=== PATIENT | male | born 1935 | race Caucasian/White ===

== ENCOUNTER 2018-06-24 10:45 | Observation (INO) | payer BC, MEDICARE ==
[2018-06-24] MEDS ORDERED: SODIUM CHLORIDE 0.9% 1,000 ML IV STA (11:17)
[2018-06-24] MEDS ORDERED: PANTOPRAZOLE 40 MG/10 ML VIAL IVP STA (11:17)
--- NOTE | 2018-06-24 11:50 | ED ---
GI Bleed HPI - General Chief complaint: GI Bleed Stated complaint: GI Bleed Time Seen by Provider: 06/24/18 11:10 Source: patient, family, RN notes reviewed Mode of arrival: ambulatory Limitations: no limitations - History of Present Illness Initial comments: This is a 82-year-old male with a history of anemia who does get B12 shots who presents with complaints of one week ago black colored stools that now turning and diarrhea he's had some lightheadedness some weakness especially gets up from a laying position no fevers chills nausea vomiting sweats or other symptoms. No known history of diverticulitis or GI bleed. He is on Elaquis he did have a cardiac ablation recently at [facility]. He did not take his Eliquis today MD complaint: melena - Related Data Home Medications Medication Instructions Recorded Confirmed Allopurinol [Zyloprim] 100 mg PO BID 01/26/16 06/24/18 Docusate [Colace] 100 mg PO DAILY 01/26/16 06/24/18 Ibuprofen [Motrin] 800 mg PO TID PRN 01/26/16 06/24/18 Metoprolol Succinate (ER) [Toprol 25 mg PO DAILY 01/26/16 06/24/18 XL] Pravastatin Sodium [Pravachol] 40 mg PO HS 01/26/16 06/24/18 glipiZIDE [Glucotrol] 5 mg PO DAILY 01/26/16 06/24/18 Albuterol Inhaler [Ventolin Hfa 1 - 2 puff INHALATION RT-Q6H PRN 06/24/18 Inhaler] Apixaban [Eliquis] 2.5 mg PO BID 06/24/18 06/24/18 Aspirin EC [Ecotrin Low Dose] 81 mg PO DAILY 06/24/18 06/24/18 Cholecalciferol (Vitamin D3) 2,000 unit PO DAILY 06/24/18 06/24/18 [Vitamin D3] Cyanocobalamin [Vitamin B-12 1,000 mcg SQ QMONTH 06/24/18 06/24/18 Injection] Dulaglutide [Trulicity] 0.75 mg SQ WE 06/24/18 06/24/18 Fluticasone Nasal [place] [Flonase 2 spr EA NOSTRIL DAILY 06/24/18 06/24/18 Nasal [place]] Furosemide [Lasix] 20 mg PO BID 06/24/18 06/24/18 Gabapentin [Neurontin] 300 mg PO BID 06/24/18 06/24/18 Ipratropium-Albuterol Nebulize 3 ml INHALATION RT-QID 06/24/18 06/24/18 [Duoneb 0.5 mg-3 mg/3 ml Soln] Omeprazole 20 mg PO DAILY 06/24/18 06/24/18 Potassium Chloride ER [K-Dur 10] 10 meq PO BID 06/24/18 06/24/18 glipiZIDE [Glucotrol] 10 mg PO HS 06/24/18 06/24/18 Allergies Allergy/AdvReac Type Severity Reaction Status Date / Time adhesive tape AdvReac Unknown Verified 06/24/18 11:35 codeine AdvReac Nausea Verified 06/24/18 11:35 morphine AdvReac Nausea and Verified 06/24/18 11:35 decreased heart rate Review of Systems ROS Statement: Those systems with pertinent positive or pertinent negative responses have been documented in the HPI. ROS Other: All systems not noted in ROS Statement are negative. Past Medical History Past Medical History: Atrial Fibrillation, Coronary Artery Disease (CAD), Heart Failure, Diabetes Mellitus, Hyperlipidemia History of Any Multi-Drug Resistant Organisms: None Reported Past Surgical History: Ablation, Cardiac Ablation, Joint Replacement, Orthopedic Surgery Past Psychological History: No Psychological Hx Reported Smoking Status: Never smoker Past Alcohol Use History: Daily, Occasional Past Drug Use History: None Reported General Exam - General Exam Comments Initial Comments: This is a well-developed well-nourished awake alert oriented 3 male Limitations: no limitations General appearance: alert, in no apparent distress Head exam: Present: atraumatic, normocephalic, normal inspection Eye exam: Present: normal appearance, PERRL, EOMI. Absent: scleral icterus, conjunctival injection, periorbital swelling ENT exam: Present: normal exam, mucous membranes moist Neck exam: Present: normal inspection. Absent: tenderness, meningismus, lymphadenopathy Respiratory exam: Present: normal lung sounds bilaterally. Absent: respiratory distress, wheezes, rales, rhonchi, stridor Cardiovascular Exam: Present: regular rate, normal rhythm, normal heart sounds. Absent: systolic murmur, diastolic murmur, rubs, gallop, clicks GI/Abdominal exam: Present: soft, normal bowel sounds. Absent: distended, tenderness, guarding, rebound, rigid Rectal exam: Present: normal inspection, heme (+) stool, black stool Extremities exam: Present: full ROM, normal capillary refill, other (Stasis dermatitis with scarring some edema to the right lower extremity). Absent: tenderness, pedal edema, joint swelling, calf tenderness Back exam: Present: normal inspection Neurological exam: Present: alert, oriented X3, CN II-XII intact Psychiatric exam: Present: normal affect, normal mood Skin exam: Present: warm, dry, intact, normal color. Absent: rash Course Vital Signs 06/24/18 06/24/18 10:49 13:45 Temperature 97.6 F Pulse Rate 87 68 Respiratory 18 18 Rate Blood Pressure 117/64 131/65 O2 Sat by Pulse 98 99 Oximetry Medical Decision Making - Medical Decision Making I did a long session with patient family members patient will be admitted for evaluation by GI. - Lab Data Result diagrams: 06/24/18 11:35 06/24/18 11:35 Lab Results 06/24/18 06/24/18 06/24/18 Range/Units 11:35 11:35 11:35 WBC 5.7 (3.8-10.6) k/uL RBC 3.03 L (4.30-5.90) m/uL Hgb 10.5 L (13.0-17.5) gm/dL Hct 30.7 L (39.0-53.0) % MCV 101.3 H (80.0-100.0) fL MCH 34.5 (25.0-35.0) pg MCHC 34.1 (31.0-37.0) g/dL RDW 15.2 (11.5-15.5) % Plt Count 143 L (150-450) k/uL Neutrophils % 81 % Lymphocytes % 9 % Monocytes % 5 % Eosinophils % 3 % Basophils % 0 % Neutrophils # 4.6 (1.3-7.7) k/uL Lymphocytes # 0.5 L (1.0-4.8) k/uL Monocytes # 0.3 (0-1.0) k/uL Eosinophils # 0.2 (0-0.7) k/uL Basophils # 0.0 (0-0.2) k/uL Macrocytosis Slight PT (9.0-12.0) sec INR (<1.2) APTT (22.0-30.0) sec Sodium 141 (137-145) mmol/L Potassium 4.0 (3.5-5.1) mmol/L Chloride 110 H (98-107) mmol/L Carbon Dioxide 22 (22-30) mmol/L Anion Gap 9 mmol/L BUN 33 H (9-20) mg/dL Creatinine 1.75 H (0.66-1.25) mg/dL Est GFR (CKD-EPI)AfAm 42 (>60 ml/min/1.73 sqM) Est GFR (CKD-EPI)NonAf 36 (>60 ml/min/1.73 sqM) Glucose 181 H (74-99) mg/dL Calcium 8.3 L (8.4-10.2) mg/dL Magnesium 2.1 (1.6-2.3) mg/dL Total Bilirubin 0.5 (0.2-1.3) mg/dL AST 20 (17-59) U/L ALT 23 (21-72) U/L Alkaline Phosphatase 114 (38-126) U/L Total Creatine Kinase 116 (55-170) U/L CK-MB (CK-2) 2.6 H (0.0-2.4) ng/mL CK-MB (CK-2) Rel Index 2.2 Troponin I 0.012 (0.000-0.034) ng/mL Total Protein 6.6 (6.3-8.2) g/dL Albumin 3.8 (3.5-5.0) g/dL Stool Occult Blood (Negative) Blood Type Blood Type Recheck Antibody Screen Spec Expiration Date 06/24/18 06/24/18 06/24/18 Range/Units 11:35 11:35 11:35 WBC (3.8-10.6) k/uL RBC (4.30-5.90) m/uL Hgb (13.0-17.5) gm/dL Hct (39.0-53.0) % MCV (80.0-100.0) fL MCH (25.0-35.0) pg MCHC (31.0-37.0) g/dL RDW (11.5-15.5) % Plt Count (150-450) k/uL Neutrophils % % Lymphocytes % % Monocytes % % Eosinophils % % Basophils % % Neutrophils # (1.3-7.7) k/uL Lymphocytes # (1.0-4.8) k/uL Monocytes # (0-1.0) k/uL Eosinophils # (0-0.7) k/uL Basophils # (0-0.2) k/uL Macrocytosis PT 10.2 (9.0-12.0) sec INR 1.0 (<1.2) APTT 26.0 (22.0-30.0) sec Sodium (137-145) mmol/L Potassium (3.5-5.1) mmol/L Chloride (98-107) mmol/L Carbon Dioxide (22-30) mmol/L Anion Gap mmol/L BUN (9-20) mg/dL Creatinine (0.66-1.25) mg/dL Est GFR (CKD-EPI)AfAm (>60 ml/min/1.73 sqM) Est GFR (CKD-EPI)NonAf (>60 ml/min/1.73 sqM) Glucose (74-99) mg/dL Calcium (8.4-10.2) mg/dL Magnesium (1.6-2.3) mg/dL Total Bilirubin (0.2-1.3) mg/dL AST (17-59) U/L ALT (21-72) U/L Alkaline Phosphatase (38-126) U/L Total Creatine Kinase (55-170) U/L CK-MB (CK-2) (0.0-2.4) ng/mL CK-MB (CK-2) Rel Index Troponin I (0.000-0.034) ng/mL Total Protein (6.3-8.2) g/dL Albumin (3.5-5.0) g/dL Stool Occult Blood Positive (Negative) Blood Type O Negative Blood Type Recheck No Antibody Screen NEGATIVE Spec Expiration Date 06/27/2018 9154 - EKG Data -: EKG Interpreted by Me (Y QRS rhythm rate was 88 QRS 120 QT since QTC 422/510 left anterior fascicu) - Radiology Data Radiology results: report reviewed (I did review the imaging and report no acute findings), image reviewed Disposition Clinical Impression: Melena, Upper GI bleed Disposition: ADMITTED IP TO THIS HOSP Condition: Stable Referrals: Jorge Miranda MD [Primary Care Provider] - 1-2 days
[2018-06-24 12:13] LABS: Basophils % (A) 0 %; Eosinophils # (A) 0.2 k/uL (0-0.7); Eosinophils % (A) 3 %; HCT 30.7 % (39.0-53.0); HGB 10.5 gm/dL (13.0-17.5); Lymphocytes # (A) 0.5 k/uL (1.0-4.8); Lymphocytes % (A) 9 %; MCH 34.5 pg (25.0-35.0); MCHC 34.1 g/dL (31.0-37.0); MCV 101.3 fL (80.0-100.0); Macrocytosis Slight; Mean Platelet Volume 7.7; Monocytes # (A) 0.3 k/uL (0-1.0); Monocytes % (A) 5 %; Neutrophils # (A) 4.6 k/uL (1.3-7.7); Neutrophils % (A) 81 %; Platelet Count 143 k/uL (150-450); RBC 3.03 m/uL (4.30-5.90); RDW 15.2 % (11.5-15.5); WBC 5.7 k/uL (3.8-10.6)
[2018-06-24 12:22] LABS: Prothrombin Time 10.2 sec (9.0-12.0)
[2018-06-24 12:30] LABS: Albumin 3.8 g/dL (3.5-5.0); Calcium 8.3 mg/dL (8.4-10.2); Magnesium 2.1 mg/dL (1.6-2.3); Total Bilirubin 0.5 mg/dL (0.2-1.3); Total Protein 6.6 g/dL (6.3-8.2)
[2018-06-24 12:56] LABS: Creatine Kinase MB 2.6 ng/mL (0.0-2.4); Troponin I 0.012 ng/mL (0.000-0.034)
[2018-06-24] MEDS ORDERED: ACETAMINOPHEN TAB 325 MG TAB PO PRN (15:35)
[2018-06-24] MEDS ORDERED: NALOXONE 0.4 MG/ML 1 ML VIAL IV PRN (15:35)
[2018-06-24] MEDS ORDERED: ALBUTEROL NEBULIZED 2.5 MG/3 ML INHALATION PRN (15:38)
[2018-06-24] MEDS: IPRATROPIUM-ALBUTEROL 3 ML NEB INHALATION SCH ×2 (17:00→20:00)
[2018-06-24] MEDS: SODIUM CHLORIDE 0.9% 1,000 ML IV SCH (18:45)
[2018-06-24] MEDS: FUROSEMIDE 20 MG TAB PO SCH (20:18)
[2018-06-24] MEDS: POTASSIUM CHLORIDE ER 10 MEQ TAB.ER.PRT PO SCH (20:18)
[2018-06-24] MEDS: PANTOPRAZOLE 40 MG/10 ML VIAL IV SCH (20:18)
[2018-06-24] MEDS: glipiZIDE 10 MG TAB PO SCH (20:18)
[2018-06-24] MEDS: PRAVASTATIN SODIUM 40 MG TAB PO SCH (20:18)
[2018-06-24] MEDS: ALLOPURINOL 100 MG TAB PO SCH (20:18)
[2018-06-24] MEDS: GABAPENTIN 400 MG CAP PO SCH (20:18)
[2018-06-24 21:00] LABS: Glucose,Whole Blood 168 mg/dL (75-99)
[2018-06-24] MEDS ORDERED: GABAPENTIN 300 MG CAP PO SCH (21:00)
[2018-06-25] MEDS: SODIUM CHLORIDE 0.9% 1,000 ML IV SCH (04:03)
[2018-06-25 07:02] LABS: Glucose,Whole Blood 106 mg/dL (75-99)
[2018-06-25 07:04] LABS: HCT 28.6 % (39.0-53.0); HGB 9.4 gm/dL (13.0-17.5); Hypochromasia Slight; MCH 33.8 pg (25.0-35.0); MCV 102.4 fL (80.0-100.0); Macrocytosis Slight; Mean Platelet Volume 7.9; Platelet Count 177 k/uL (150-450); RBC 2.79 m/uL (4.30-5.90)
[2018-06-25] MEDS: IPRATROPIUM-ALBUTEROL 3 ML NEB INHALATION SCH ×4 (07:35→20:23)
[2018-06-25] MEDS: GABAPENTIN 400 MG CAP PO SCH ×2 (09:37→21:14)
[2018-06-25] MEDS: POTASSIUM CHLORIDE ER 10 MEQ TAB.ER.PRT PO SCH ×2 (09:37→21:17)
[2018-06-25] MEDS: CHOLECALCIFEROL 1,000 UNIT TAB PO SCH (09:37)
[2018-06-25] MEDS: FUROSEMIDE 20 MG TAB PO SCH ×2 (09:37→21:14)
[2018-06-25] MEDS: PANTOPRAZOLE 40 MG/10 ML VIAL IV SCH ×2 (09:37→21:16)
[2018-06-25] MEDS: glipiZIDE 5 MG TAB PO SCH (09:38)
[2018-06-25] MEDS: METOPROLOL SUCCINATE (ER) 25 MG TAB.ER.24H PO SCH (09:38)
[2018-06-25] MEDS: ALLOPURINOL 100 MG TAB PO SCH ×2 (09:38→21:14)
[2018-06-25] MEDS: FLUTICASONE 50MCG/SPRAY NASAL 16GM EA NOSTRIL SCH (10:05)
[2018-06-25 10:46] LABS: Calcium 8.4 mg/dL (8.4-10.2); Potassium 4.5 mmol/L (3.5-5.1)
[2018-06-25 11:59] LABS: Glucose,Whole Blood 143 mg/dL (75-99)
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
[2018-06-25 17:29] LABS: Glucose,Whole Blood 137 mg/dL (75-99)
[2018-06-25 21:12] LABS: Glucose,Whole Blood 105 mg/dL (75-99)
[2018-06-25] MEDS: PRAVASTATIN SODIUM 40 MG TAB PO SCH (21:17)
[2018-06-25] MEDS: glipiZIDE 10 MG TAB PO SCH (21:17)
[2018-06-26 01:50] VITALS: RESP 18
[2018-06-26 06:35] LABS: Glucose,Whole Blood 64 mg/dL (75-99)
[2018-06-26] MEDS ORDERED: DEXTROSE 50%-WATER 50 ML SYRINGE IVP ONE (06:58)
[2018-06-26 07:05] LABS: Glucose,Whole Blood 77 mg/dL (75-99)
[2018-06-26 07:32] LABS: Basophils % (A) 0 %; Eosinophils # (A) 0.2 k/uL (0-0.7); Eosinophils % (A) 4 %; HGB 8.8 gm/dL (13.0-17.5); Hypochromasia Slight; Lymphocytes # (A) 0.9 k/uL (1.0-4.8); Lymphocytes % (A) 15 %; MCHC 32.4 g/dL (31.0-37.0); MCV 101.8 fL (80.0-100.0); Macrocytosis Slight; Mean Platelet Volume 7.4; Monocytes # (A) 0.4 k/uL (0-1.0); Monocytes % (A) 7 %; Neutrophils # (A) 4.2 k/uL (1.3-7.7); Neutrophils % (A) 71 %; Platelet Count 169 k/uL (150-450); RBC 2.65 m/uL (4.30-5.90); RDW 14.8 % (11.5-15.5); WBC 5.9 k/uL (3.8-10.6)
[2018-06-26 07:48] LABS: Glucose,Whole Blood 152 mg/dL (75-99)
[2018-06-26] MEDS: IPRATROPIUM-ALBUTEROL 3 ML NEB INHALATION SCH ×4 (08:52→20:16)
[2018-06-26] MEDS: LACTATED RINGERS 1,000 ML IV SCH (08:54)
[2018-06-26] MEDS: PANTOPRAZOLE 40 MG/10 ML VIAL IV SCH ×2 (08:55→20:46)
[2018-06-26] MEDS ORDERED: NON-FORMULARY DRUG (Dulaglutide [Trulicity] 0.75 MG) SQ SCH (09:00)
[2018-06-26] MEDS ORDERED: PROPOFOL 10 MG/ML 20 ML VIAL IV ONE (10:39)
[2018-06-26] MEDS ORDERED: LIDOCAINE 1% INJ 10MG/ML (20 ML MDV) ONE (10:39)
[2018-06-26] MEDS ORDERED: IV FLUID CONTINUATION 1,000 ML IV ONE (10:43)
--- NOTE | 2018-06-26 10:55 | P.PCN ---
Date of Procedure: 06/26/18 Procedure(s) Performed: BRIEF HISTORY: Patient is a 82-year-old, pleasant, white male, admitted to the hospital because of melena of 1 week duration and drop in hemoglobin to 9 g/dL. He was diagnosed with A. fib 4 months ago and since then has been maintained on request. He scheduled for an upper endoscopy to evaluate the source of GI bleed. PROCEDURE PERFORMED: Esophagogastroduodenoscopy. PREOPERATIVE DIAGNOSIS: Melena of 1 week duration and anemia. IV sedation per anesthesia. PROCEDURE: After informed consent was obtained, the patient was brought into the endoscopy unit. IV sedation was administered by Anesthesia under continuous monitoring. Initially the Olympus GIF-140 video endoscope was inserted into the mouth. Esophagus intubated without any difficulty. It was gradually advanced into the stomach and duodenum and carefully examined. The bulb and the second part of the duodenum appeared normal. The scope at this time was withdrawn to the stomach, adequately insufflated with air, and upon careful examination, mucosa of the antrum, had one superficial erosion but no active bleeding. The body, cardia and the fundus appeared normal. The scope was then withdrawn into the esophagus. The GE junction was located at 39 cm from the incisors. The esophagus appeared normal. There were no erosions or ulcerations seen and the patient tolerated the procedure well. IMPRESSION: 1. Scattered erosion in the stomach but no active bleeding. 2. No evidence of esophagitis or peptic ulcer disease. RECOMMENDATIONS: The findings of this examination were discussed with the patient as well as his family. Since no obvious source of bleeding identified, he will be scheduled for a small bowel capsule endoscopy today.
[2018-06-26] MEDS ORDERED: SIMETHICONE 40 MG/0.6 ML DROPS 2,000 MG/30 ML BOTTLE PO ONE (11:42)
[2018-06-26 12:38] LABS: Glucose,Whole Blood 75 mg/dL (75-99)
[2018-06-26] MEDS: ALLOPURINOL 100 MG TAB PO SCH ×2 (16:15→20:47)
[2018-06-26] MEDS: GABAPENTIN 400 MG CAP PO SCH ×2 (16:15→20:47)
[2018-06-26] MEDS: FUROSEMIDE 20 MG TAB PO SCH ×2 (16:15→20:47)
[2018-06-26] MEDS: POTASSIUM CHLORIDE ER 10 MEQ TAB.ER.PRT PO SCH ×2 (16:15→20:47)
[2018-06-26 16:38] LABS: Glucose,Whole Blood 137 mg/dL (75-99)
[2018-06-26] MEDS: CHOLECALCIFEROL 1,000 UNIT TAB PO SCH (17:18)
[2018-06-26] MEDS: METOPROLOL SUCCINATE (ER) 25 MG TAB.ER.24H PO SCH (17:19)
[2018-06-26] MEDS: glipiZIDE 5 MG TAB PO SCH (17:19)
[2018-06-26] MEDS: FLUTICASONE 50MCG/SPRAY NASAL 16GM EA NOSTRIL SCH (17:21)
[2018-06-26] MEDS ORDERED: ARTIFICIAL TEARS-HYPROMELLOSE DROPS 15 ML BTL BOTH EYES PRN (17:22)
--- NOTE | 2018-06-26 19:01 | PN ---
PROGRESS NOTE DATE OF SERVICE: 06/26/2018. PRESENTING COMPLAINT: Dark stools. INTERVAL HISTORY: This patient who is on Eliquis and aspirin presented with dark stools. Did undergo EGD, was found to have some gastric erosions. Subsequent capsule endoscopy was done. The patient is lying in bed. No further episodes. REVIEW OF SYSTEMS: Done for constitutional, cardiovascular, GI, pulmonary, relevant findings as above. CURRENT MEDICATIONS: Reviewed. PHYSICAL EXAMINATION: VITAL SIGNS: Temperature 97.1, pulse 80, respiratory 18, blood pressure 138/65. Pulse ox 96% on room air. GENERAL APPEARANCE: Lying in bed, awake. EYES: Pupils equal. Conjunctivae pale. HEENT: External appearance of nose and ears normal. Oral cavity normal. NECK JVD not raised. Mass not palpable. RESPIRATORY effort normal. LUNGS fair entry. CARDIOVASCULAR: First and second sounds normal. No edema. ABDOMEN: Soft, nontender. Liver and spleen not palpable. PSYCHIATRY: Alert and oriented x3. Mood and affect normal. INVESTIGATIONS: Hemoglobin 8.8. Accu-Cheks are noted. ASSESSMENT: 1. Acute gastrointestinal bleed in a patient who was on Eliquis, aspirin. Per the daughter, the patient was not taking Motrin. 2. Acute blood loss anemia from gastrointestinal tract, symptomatic. 3. Chronic congestive heart failure, ejection fraction not known. 4. Diabetes mellitus type 2. 5. Hyperlipidemia. 6. Chronic sciatica. 7. 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 8. Chronic gout. 9. Obesity; BMI 30.7. 10.Gastric erosions as noted on EGD. PLAN: Care was discussed with the patient. The patient is awaiting a small capsule endoscopy. He was told the results will be back until tomorrow. Will make a decision from there. MMODL / IJN: [id number] /
[2018-06-26] MEDS: glipiZIDE 10 MG TAB PO SCH (20:47)
[2018-06-26] MEDS: PRAVASTATIN SODIUM 40 MG TAB PO SCH (20:47)
[2018-06-26 21:12] LABS: Glucose,Whole Blood 168 mg/dL (75-99)
[2018-06-27] MEDS: LACTATED RINGERS 1,000 ML IV SCH (00:43)
[2018-06-27 06:05] LABS: Calcium 8.4 mg/dL (8.4-10.2); Potassium 4.2 mmol/L (3.5-5.1)
[2018-06-27 06:30] LABS: Glucose,Whole Blood 122 mg/dL (75-99)
[2018-06-27] MEDS: FUROSEMIDE 20 MG TAB PO SCH (08:12)
[2018-06-27] MEDS: ALLOPURINOL 100 MG TAB PO SCH (08:12)
[2018-06-27] MEDS: CHOLECALCIFEROL 1,000 UNIT TAB PO SCH (08:12)
[2018-06-27] MEDS: glipiZIDE 5 MG TAB PO SCH (08:13)
[2018-06-27] MEDS: METOPROLOL SUCCINATE (ER) 25 MG TAB.ER.24H PO SCH (08:13)
[2018-06-27] MEDS: POTASSIUM CHLORIDE ER 10 MEQ TAB.ER.PRT PO SCH (08:14)
[2018-06-27] MEDS: GABAPENTIN 400 MG CAP PO SCH (08:16)
[2018-06-27] MEDS: PANTOPRAZOLE 40 MG/10 ML VIAL IV SCH (08:18)
[2018-06-27] MEDS: IPRATROPIUM-ALBUTEROL 3 ML NEB INHALATION SCH ×2 (08:39→12:17)
--- NOTE | 2018-06-27 09:29 | P.PN ---
Subjective Progress Note Date: 06/27/18 Principal diagnosis: GI bleed melena 82-year-old male history of A. fib maintained on antibiotic relation presenting with melanotic bowel movements. Status post EGD with no evidence of peptic ulcer disease or bleeding sources. Small bowel capsule endoscopy completed yesterday. No further melena 48 hours. Feels well. Denies abdominal pain. Afebrile. Hemoglobin yesterday 8.8. Objective - Vital Signs Vital signs: Vital Signs Temp 98.7 F 06/27/18 04:00 Pulse 84 06/27/18 08:53 Resp 18 06/27/18 04:00 BP 113/59 06/27/18 04:00 Pulse Ox 97 06/27/18 04:00 Intake & Output 06/26/18 06/27/18 06/27/18 18:59 06:59 18:59 Intake Total 50 280 240 Output Total 1400 250 Balance -1350 30 240 Weight 100.5 kg Intake: IV 50 Oral 280 240 Output: Urine 1400 250 Other: Voiding Method Urinal # Voids 450 1 - Exam General appearance: The patient is alert, oriented, in no acute distress. HET: Head is normocephalic and atraumatic. Pupils are equal and reactive. Oropharynx is clear without lesions. Neck: Supple without lymphadenopathy. Trachea midline. Heart: S1 S2. Regular rate and rhythm. Lungs: No crackles or wheezes are heard. Abdomen: Soft, nontender, nondistended with bowel sounds. No peritoneal signs. No palpable organomegaly or masses. Extremities: Normal skin color and turgor. No cyanosis, rash, ulceration, clubbing, or edema. Radial and pedal pulses are 2/4 bilaterally. Neurological: No focal deficits. Strength and sensation are grossly intact. - Labs CBC & Chem 7: 06/27/18 05:40 06/27/18 05:40 Labs: Abnormal Lab Results - Last 24 Hours (Table) 06/26/18 06/26/18 06/27/18 Range/Units 16:24 21:02 05:40 Chloride 108 H (98-107) mmol/L Creatinine 2.04 H (0.66-1.25) mg/dL Glucose 102 H (74-99) mg/dL POC Glucose (mg/dL) 137 H 168 H (75-99) mg/dL 10/11/18 Range/Units 06:07 Chloride (98-107) mmol/L Creatinine (0.66-1.25) mg/dL Glucose (74-99) mg/dL POC Glucose (mg/dL) 122 H (75-99) mg/dL Assessment and Plan (1) Upper GI bleed Narrative/Plan: 82-year-old gentleman admitted with symptomatic anemia one-week history of painless melena maintained on anticoagulation for history of atrial fibrillation and taking high-dose NSAIDs 4 days last week is post unremarkable EGD. Small bowel capsule endoscopy completed results pending. Possible small bowel pathology. Current Visit: Yes Status: Acute Code(s): K92.2 - GASTROINTESTINAL HEMORRHAGE, UNSPECIFIED SNOMED Code(s): 75174836 (2) Acute blood loss anemia Current Visit: Yes Status: Acute Code(s): D62 - ACUTE POSTHEMORRHAGIC ANEMIA SNOMED Code(s): 249794038 (3) History of atrial fibrillation Current Visit: Yes Status: Acute Code(s): Z86.79 - PERSONAL HISTORY OF OTHER DISEASES OF THE CIRCULATORY SYSTEM SNOMED Code(s): 451660062 (4) History of bladder cancer Current Visit: Yes Status: Acute Code(s): Z85.51 - PERSONAL HISTORY OF MALIGNANT NEOPLASM OF BLADDER SNOMED Code(s): 841609703 (5) Melena Current Visit: Yes Status: Acute Code(s): K92.1 - MELENA SNOMED Code(s): 1144677 Plan: 1. Continue healthy heart diet. We'll review capsule study today. CBC monitoring. Protonix 40 mg IV twice daily. Hold anticoagulation. Assessment and plan a care discussed with Dr. Bustamante
[2018-06-27 11:05] LABS: Basophils % (A) 0 %; Eosinophils # (A) 0.2 k/uL (0-0.7); Eosinophils % (A) 4 %; HCT 26.2 % (39.0-53.0); HGB 8.3 gm/dL (13.0-17.5); Hypochromasia Moderate; Lymphocytes # (A) 0.8 k/uL (1.0-4.8); Lymphocytes % (A) 14 %; MCH 32.7 pg (25.0-35.0); MCHC 31.8 g/dL (31.0-37.0); MCV 102.7 fL (80.0-100.0); Macrocytosis Slight; Mean Platelet Volume 8.4; Monocytes # (A) 0.4 k/uL (0-1.0); Monocytes % (A) 7 %; Neutrophils # (A) 4.1 k/uL (1.3-7.7); Neutrophils % (A) 72 %; Platelet Count 169 k/uL (150-450); RBC 2.55 m/uL (4.30-5.90); RDW 14.8 % (11.5-15.5); WBC 5.7 k/uL (3.8-10.6)
--- NOTE | 2018-06-27 11:29 | P.PN ---
Progress Note - Text Progress Note Date: 06/27/18 Small bowel capsule study reviewed no evidence of small bowel bleeding. Full dictated report to follow by propellant charge zone assembler.
[2018-06-27 11:30] LABS: Glucose,Whole Blood 137 mg/dL (75-99)
[2018-06-27 14:19] VITALS: BP 121/66; PULSE 84; TEMP 98.5
--- NOTE | 2018-07-01 22:57 | DS ---
DISCHARGE SUMMARY DATE OF DISCHARGE: 06/24/2018. FINAL DIAGNOSES: 1. Acute gastrointestinal bleed in a patient who was taking Eliquis. The patient was not taking aspirin. 2. Acute blood loss anemia from gastrointestinal tract, symptomatic. 3. Chronic congestive heart failure, ejection fraction not known. 4. Diabetes mellitus type 2. 5. Hyperlipidemia. 6. Chronic sciatica. 7. 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 8. Chronic gout. 9. Obesity; BMI 30.7. 10.Gastric erosions noted, probably from Eliquis on esophagogastroduodenoscopy. HOSPITAL COURSE: The patient presented with 1 week of dark stools. In the hospital hemoglobin did drop from 10.5 to 8.3. The patient remained hemodynamically stable. The patient did have a EGD that showed gastric erosions. Small bowel capsule study was done, verbal report of that was negative. The patient was extremely keen to go home. On the day of discharge care was discussed with the patient, his daughter who is a nurse, and the . Several questions were answered. 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 The patient was not taking aspirin nor was he taking Motrin prior to coming in. PHYSICAL EXAMINATION: Temperature 98.5 pulse 84, respirations 16, blood pressure 120/66, pulse ox 98% on room air. LUNGS: Fair air entry. CARDIOVASCULAR: 1st and 2nd sounds normal. ABDOMEN: Soft, nontender. LABS: Hemoglobin 8.3. CONSULTATION: Dr. Yonis Bustamante from GI. DISCHARGE MEDICATIONS: 1. Allopurinol 100 mg p.o. b.i.d. 2. Colace 100 mg a day. 3. Toprol-XL 25 mg a day. 4. Pravachol 40 mg at bedtime. 5. Glucotrol 5 mg a day. 6. Ventolin HFA 1 or 2 puffs every 6 hours p.r.n. 7. Vitamin D3, 2000 units p.o. daily. 8. Vitamin B12 injection 1000 mcg subcu every month. 9. Trulicity 0.75 mg subcu on Sunday. 10.Flonase 2 sprays each nostril daily. 11.Lasix 20 mg p.o. b.i.d. 12.Neurontin 400 mg p.o. b.i.d. 13.DuoNeb q.i.d. 14.Omeprazole 20 mg p.o. daily. 15.Potassium 10 mEq p.o. b.i.d. 16.Glucotrol 10 mg p.o. at bedtime. 17.Artificial tear drops 2 drops both eyes q.i.d. p.r.n. the patient. FOLLOWUP: 1. Follow up with Dr. Miranda on 07/04/2018. 2. Follow up with Dr. Yonis Bustamante on 08/05/2018. 3. The patient to follow up with his meat manager in 1 week. The patient has been told to hold off his Eliquis until follow up with his meat manager. LABS: CBC and BMP on 07/01/2018. DISCUSSION AND DISCHARGE PLANNING: More than 35 minutes. [id number] / RAULN: [id number] /
[2018-07-18] MEDS ORDERED: CYANOCOBALAMIN 1,000 MCG/ML 1 ML VIAL SQ SCH (09:00)
== END 2018-06-27 14:00 | disposition home or self-care (01) ==
LOC: EC 10:45 → 4MS4W 15:35 → 6SEL 06-25 20:49
PROVIDERS: ADMIT Hospitalist; ATTEND Hospitalist
DX: K25.4 Chronic or unspecified gastric ulcer with hemorrhage (principal); D62 Acute posthemorrhagic anemia; I13.0 Hypertensive heart and chronic kidney disease with heart failure and stage 1 through stage 4 chronic kidney disease, or unspecified chronic kidney disease; N18.3 Chronic kidney disease, stage 3 (moderate); E11.22 Type 2 diabetes mellitus with diabetic chronic kidney disease; I50.9 Heart failure, unspecified; E11.42 Type 2 diabetes mellitus with diabetic polyneuropathy; I48.91 Unspecified atrial fibrillation; I25.10 Atherosclerotic heart disease of native coronary artery without angina pectoris; E78.5 Hyperlipidemia, unspecified; I44.4 Left anterior fascicular block; I87.2 Venous insufficiency (chronic) (peripheral); M1A.9XX0 Chronic gout, unspecified, without tophus (tophi); Z68.30 Body mass index [BMI] 30.0-30.9, adult; E66.9 Obesity, unspecified; J45.909 Unspecified asthma, uncomplicated; M54.30 Sciatica, unspecified side; Z79.01 Long term (current) use of anticoagulants; Z79.84 Long term (current) use of oral hypoglycemic drugs; Z79.890 Hormone replacement therapy; Z79.899 Other long term (current) drug therapy; Z88.5 Allergy status to narcotic agent; Z91.048 Other nonmedicinal substance allergy status; Z86.19 Personal history of other infectious and parasitic diseases; Z85.51 Personal history of malignant neoplasm of bladder; Z87.81 Personal history of (healed) traumatic fracture; Z96.643 Presence of artificial hip joint, bilateral; Z96.652 Presence of left artificial knee joint; Z82.5 Family history of asthma and other chronic lower respiratory diseases
CPT/HCPCS: 96376 ×3; 96361 ×3; 96374; 99285; 36415; 94640 ×7; 93005; 86900; 86901; 80053; 80048 ×2; 82550; 82553; 83735; 84484; 85025 ×3; 85027; 85610; 85730; 86850; 82272; 43235; 91110; G0378 ×5; J2001; J2704; C9113 ×4

== ENCOUNTER 2018-10-11 11:16 | Emergency (ER) | payer BC, MEDICARE ==
[2018-10-11 11:23] VITALS: TEMP 97.6
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
[2018-10-11 12:54] LABS: Anisocytosis Slight; Basophils % (A) 1 %; Eosinophils # (A) 0.3 k/uL (0-0.7); Eosinophils % (A) 4 %; HCT 28.5 % (39.0-53.0); HGB 8.7 gm/dL (13.0-17.5); Hypochromasia Moderate; Lymphocytes # (A) 0.9 k/uL (1.0-4.8); Lymphocytes % (A) 14 %; MCH 27.2 pg (25.0-35.0); MCHC 30.5 g/dL (31.0-37.0); MCV 89.2 fL (80.0-100.0); Mean Platelet Volume 7.6; Monocytes # (A) 0.4 k/uL (0-1.0); Monocytes % (A) 6 %; Neutrophils # (A) 4.8 k/uL (1.3-7.7); Neutrophils % (A) 72 %; Platelet Count 196 k/uL (150-450); RDW 17.6 % (11.5-15.5); WBC 6.6 k/uL (3.8-10.6)
[2018-10-11 13:05] LABS: INR 0.9 (<1.2); Partial Thromboplastin Time 24.8 sec (22.0-30.0); Prothrombin Time 9.8 sec (9.0-12.0)
[2018-10-11 13:07] LABS: Albumin 4.2 g/dL (3.5-5.0); Magnesium 2.3 mg/dL (1.6-2.3); Potassium 4.9 mmol/L (3.5-5.1); Total Bilirubin 0.6 mg/dL (0.2-1.3)
--- NOTE | 2018-10-11 13:10 | XR ---
EXAMINATION TYPE: XR chest 2V DATE OF EXAM: 10/11/2018 COMPARISON: NONE HISTORY: Shortness of breath TECHNIQUE: Frontal and lateral views of the chest are obtained. FINDINGS: Scattered senescent parenchymal changes noted. Hyperinflation compatible with COPD. No evidence for infiltrate. No evidence for atelectasis. Heart size is stable. Mediastinal structures are stable and grossly unremarkable. No evidence for hilar prominence. Degenerative changes dorsal spine. IMPRESSION: 1. No evidence for acute pulmonary disease.
[2018-10-11 13:13] LABS: Creatine Kinase 152 U/L (55-170)
[2018-10-11 13:25] LABS: Creatine Kinase MB 1.7 ng/mL (0.0-2.4); Troponin I <0.012 ng/mL (0.000-0.034)
[2018-10-11] MEDS ORDERED: FUROSEMIDE 10 MG/ML 4 ML VIAL IV STA (13:54)
[2018-10-11 14:10] VITALS: BP 125/71; PULSE 75; RESP 19
== END 2018-10-11 14:40 | disposition home or self-care (01) ==
LOC: EC 11:16
DX: R06.02 Shortness of breath (principal); I44.60 Unspecified fascicular block; G31.9 Degenerative disease of nervous system, unspecified; M79.89 Other specified soft tissue disorders; J45.909 Unspecified asthma, uncomplicated; E78.5 Hyperlipidemia, unspecified; I48.91 Unspecified atrial fibrillation; I50.9 Heart failure, unspecified; E11.40 Type 2 diabetes mellitus with diabetic neuropathy, unspecified; M10.9 Gout, unspecified; Z88.5 Allergy status to narcotic agent; Z91.048 Other nonmedicinal substance allergy status; Z79.51 Long term (current) use of inhaled steroids; Z79.82 Long term (current) use of aspirin; Z79.84 Long term (current) use of oral hypoglycemic drugs; Z79.899 Other long term (current) drug therapy; Z85.51 Personal history of malignant neoplasm of bladder; Z96.643 Presence of artificial hip joint, bilateral; Z96.652 Presence of left artificial knee joint; Z98.890 Other specified postprocedural states
CPT/HCPCS: 36415; 93005; 83880; 80053; 82550; 82553; 83735; 84484; 85025; 85610; 85730; 71046; 99285; 96374; J1940

== ENCOUNTER 2018-10-16 16:06 | Inpatient (IN) | payer BC, MEDICARE ==
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
[2018-10-16 17:02] LABS: Anisocytosis Slight; Basophils # (A) 0.1 k/uL (0-0.2); Basophils % (A) 1 %; Eosinophils # (A) 0.2 k/uL (0-0.7); Eosinophils % (A) 3 %; HCT 28.8 % (39.0-53.0); HGB 8.8 gm/dL (13.0-17.5); Hypochromasia Marked; Lymphocytes # (A) 0.9 k/uL (1.0-4.8); Lymphocytes % (A) 14 %; MCH 27.4 pg (25.0-35.0); MCHC 30.5 g/dL (31.0-37.0); MCV 89.9 fL (80.0-100.0); Mean Platelet Volume 8.1; Monocytes # (A) 0.4 k/uL (0-1.0); Monocytes % (A) 6 %; Neutrophils # (A) 4.9 k/uL (1.3-7.7); Neutrophils % (A) 73 %; Platelet Count 183 k/uL (150-450); RDW 17.4 % (11.5-15.5); WBC 6.7 k/uL (3.8-10.6)
[2018-10-16 17:14] LABS: INR 0.9 (<1.2); Partial Thromboplastin Time 24.8 sec (22.0-30.0); Prothrombin Time 9.8 sec (9.0-12.0)
[2018-10-16 17:29] LABS: Albumin 4.1 g/dL (3.5-5.0); Calcium 8.6 mg/dL (8.4-10.2); Magnesium 2.2 mg/dL (1.6-2.3); Potassium 4.4 mmol/L (3.5-5.1); Total Bilirubin 0.6 mg/dL (0.2-1.3); Total Protein 6.7 g/dL (6.3-8.2)
[2018-10-16 17:41] LABS: Creatine Kinase MB 1.3 ng/mL (0.0-2.4); Troponin I 0.014 ng/mL (0.000-0.034)
[2018-10-16] MEDS ORDERED: FUROSEMIDE 10 MG/ML 10 ML VIAL IV STA (17:46)
--- NOTE | 2018-10-16 17:46 | XR ---
EXAMINATION TYPE: XR chest 2V DATE OF EXAM: 10/16/2018 COMPARISON: 10/11/2018 HISTORY: Difficulty breathing TECHNIQUE: Frontal and lateral views of the chest are obtained. FINDINGS: There is no heart failure nor confluent pneumonic infiltrate. Heart is enlarged. There are chest leads. There is arthritic change in the right shoulder joint. There is slight blunting of the posterior costophrenic angles. IMPRESSION: Cardiomegaly. Small pleural effusions. No heart failure.. No change.
[2018-10-16] MEDS ORDERED: NALOXONE 0.4 MG/ML 1 ML VIAL IV PRN (17:51)
[2018-10-16 22:02] LABS: Glucose,Whole Blood 160 mg/dL (75-99)
[2018-10-16] MEDS: ALLOPURINOL 100 MG TAB PO SCH (23:04)
[2018-10-16] MEDS: GABAPENTIN 300 MG CAP PO SCH (23:04)
[2018-10-16] MEDS: PRAVASTATIN SODIUM 40 MG TAB PO SCH (23:04)
[2018-10-16] MEDS: INSULIN ASPART 100 UNIT/ML 1 ML 10 ML VIAL SQ SCH (23:05)
[2018-10-16] MEDS: FUROSEMIDE 10 MG/ML 10 ML VIAL IV SCH (23:12)
[2018-10-16] MEDS ORDERED: NON-FORMULARY DRUG (Dulaglutide [Trulicity] 0.75 MG) SQ SCH (23:45)
[2018-10-17] MEDS: IPRATROPIUM-ALBUTEROL 3 ML NEB INHALATION PRN ×2 (01:15→04:46)
[2018-10-17 05:59] LABS: Glucose,Whole Blood 154 mg/dL (75-99)
[2018-10-17] MEDS: INSULIN ASPART 100 UNIT/ML 1 ML 10 ML VIAL SQ SCH ×4 (06:36→21:11)
[2018-10-17] MEDS: FUROSEMIDE 10 MG/ML 10 ML VIAL IV SCH (06:36)
[2018-10-17 07:23] LABS: Anisocytosis Slight; Basophils % (A) 1 %; Eosinophils # (A) 0.1 k/uL (0-0.7); Eosinophils % (A) 3 %; HCT 25.5 % (39.0-53.0); HGB 8.2 gm/dL (13.0-17.5); Hypochromasia Marked; Lymphocytes # (A) 0.7 k/uL (1.0-4.8); Lymphocytes % (A) 12 %; MCH 28.7 pg (25.0-35.0); MCV 89.4 fL (80.0-100.0); Mean Platelet Volume 7.3; Monocytes # (A) 0.4 k/uL (0-1.0); Monocytes % (A) 7 %; Neutrophils % (A) 74 %; Platelet Count 163 k/uL (150-450); RBC 2.85 m/uL (4.30-5.90); RDW 17.4 % (11.5-15.5); WBC 5.5 k/uL (3.8-10.6)
[2018-10-17] MEDS ORDERED: PANTOPRAZOLE 40 MG TABLET PO SCH (07:30)
[2018-10-17 07:33] LABS: Calcium 8.6 mg/dL (8.4-10.2); Potassium 3.8 mmol/L (3.5-5.1)
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
[2018-10-17] MEDS: GABAPENTIN 300 MG CAP PO SCH ×2 (08:41→21:11)
[2018-10-17] MEDS: ASPIRIN 81 MG PO SCH (08:42)
[2018-10-17] MEDS: ALLOPURINOL 100 MG TAB PO SCH ×2 (08:42→21:11)
[2018-10-17] MEDS: METOPROLOL SUCCINATE (ER) 25 MG TAB.ER.24H PO SCH (08:42)
[2018-10-17] MEDS: IPRATROPIUM-ALBUTEROL 3 ML NEB INHALATION SCH ×4 (08:54→21:03)
[2018-10-17] MEDS: FUROSEMIDE 10 MG/ML 4 ML VIAL IV SCH ×2 (09:07→21:11)
[2018-10-17] MEDS: FLUTICASONE 50MCG/SPRAY NASAL 16GM EA NOSTRIL SCH ×2 (11:17→22:38)
[2018-10-17 11:58] LABS: Glucose,Whole Blood 196 mg/dL (75-99)
[2018-10-17] MEDS: FAMOTIDINE 20 MG TAB PO SCH (12:22)
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
[2018-10-17 14:40] VITALS: BMI 30.9
[2018-10-17 17:29] LABS: Glucose,Whole Blood 281 mg/dL (75-99)
[2018-10-17 17:44] LABS: Hemoglobin A1C 7.8 % (4.0-6.0)
[2018-10-17 20:27] LABS: Calcium 8.8 mg/dL (8.4-10.2); Potassium 3.8 mmol/L (3.5-5.1)
[2018-10-17 20:43] LABS: Glucose,Whole Blood 144 mg/dL (75-99)
[2018-10-17] MEDS ORDERED: POTASSIUM CHLORIDE ER 20 MEQ TAB.ER PO STA (20:45)
[2018-10-17] MEDS: PRAVASTATIN SODIUM 40 MG TAB PO SCH (21:11)
[2018-10-18 06:01] LABS: Glucose,Whole Blood 173 mg/dL (75-99)
[2018-10-18] MEDS: INSULIN ASPART 100 UNIT/ML 1 ML 10 ML VIAL SQ SCH ×4 (06:23→21:48)
[2018-10-18] MEDS: IPRATROPIUM-ALBUTEROL 3 ML NEB INHALATION SCH ×4 (07:29→19:28)
[2018-10-18 08:12] LABS: Anisocytosis Slight; HCT 26.4 % (39.0-53.0); Hypochromasia Marked; MCH 26.9 pg (25.0-35.0); MCHC 30.3 g/dL (31.0-37.0); MCV 88.8 fL (80.0-100.0); Mean Platelet Volume 7.5; Platelet Count 188 k/uL (150-450); RBC 2.97 m/uL (4.30-5.90); RDW 17.5 % (11.5-15.5); WBC 5.8 k/uL (3.8-10.6)
[2018-10-18 08:28] LABS: Calcium 8.6 mg/dL (8.4-10.2); Potassium 4.3 mmol/L (3.5-5.1)
--- NOTE | 2018-10-18 08:37 | P.PN ---
Subjective Progress Note Date: 10/18/18 Principal diagnosis: CHF secondary to diastole dysfunction This is a pleasant 83-year-old gentleman who does follow with a chief of police out of the town, Dr. Anthony Connell at [facility], presented to the emergency room complaining of shortness of breath as well as bilateral lower Connell disease edema. The patient does have history of paroxysmal atrial fibrillation not on any oral anticoagulation because he does have history of GI bleeding. Beside that he did undergo multiple A. fib/a flutter ablation in the past and also cardioversion but he has been maintaining normal sinus mechanism. No coronary artery disease. According to his daughter, who is a nurse on the floor, he underwent a heart catheterization about a year ago and that showed normal coronaries arteries. For the last 4 weeks, he has been experiencing progressive exertional dyspnea as well as orthopnea. He did gain about 17 pounds. Also he did develop bilateral lower extremities edema. No symptoms of chest pain or chest discomfort. No dizziness or lightheadedness. No feeling of heart racing or fluttering. And no syncope. The EKG showed sinus rhythm with first-degree AV block. The chest x-ray did not show any acute abnormalities. The patient's creatinine is 2.14 when he presented to the hospital and according to his daughter that his baseline creatinine. On follow-up with the patient today, October 182018, he is feeling better internal shortness of breath but he is not back to baseline. The lower extremities edema has improved as well. He is on Lasix IV at 40 mg twice a day and the creatinine this morning continues to be stable at 2.03 which is his baseline. Hemoglobin is 8. I would suggest continue the IV Lasix for at least additional 24 hours and continue monitor the kidney function and electrolytes. Objective - Vital Signs Vital signs: Vital Signs Temp 97.7 F 10/18/18 04:00 Pulse 86 10/18/18 04:00 Resp 16 10/18/18 04:00 BP 125/72 10/18/18 04:00 Pulse Ox 97 10/18/18 04:00 Intake & Output 10/17/18 10/18/18 10/18/18 18:59 06:59 18:59 Intake Total 1720 20 Output Total 3000 1500 Balance -1280 -1480 Weight 103.4 kg 102 kg Intake: IV 20 20 0.9 20 Invasive Line 1 20 Oral 1700 Output: Urine 3000 1500 Other: Voiding Method Toilet Toilet Urinal Urinal - Constitutional General appearance: Present: no acute distress - Respiratory Respiratory: bilateral: diminished - Cardiovascular Rhythm: regular Heart sounds: normal: S1, S2 - Labs CBC & Chem 7: 10/18/18 06:51 10/18/18 06:51 Labs: Abnormal Lab Results - Last 24 Hours (Table) 10/17/18 10/17/18 10/17/18 Range/Units 06:48 11:35 16:29 RBC (4.30-5.90) m/uL Hgb (13.0-17.5) gm/dL Hct (39.0-53.0) % MCHC (31.0-37.0) g/dL RDW (11.5-15.5) % Carbon Dioxide (22-30) mmol/L BUN (9-20) mg/dL Creatinine (0.66-1.25) mg/dL Glucose (74-99) mg/dL POC Glucose (mg/dL) 196 H 281 H (75-99) mg/dL Hemoglobin A1c 7.8 H (4.0-6.0) % 10/17/18 10/17/18 10/18/18 Range/Units 19:47 20:35 05:47 RBC (4.30-5.90) m/uL Hgb (13.0-17.5) gm/dL Hct (39.0-53.0) % MCHC (31.0-37.0) g/dL RDW (11.5-15.5) % Carbon Dioxide 32 H (22-30) mmol/L BUN 39 H (9-20) mg/dL Creatinine 2.07 H (0.66-1.25) mg/dL Glucose 147 H (74-99) mg/dL POC Glucose (mg/dL) 144 H 173 H (75-99) mg/dL Hemoglobin A1c (4.0-6.0) % 10/18/18 10/18/18 Range/Units 06:51 06:51 RBC 2.97 L (4.30-5.90) m/uL Hgb 8.0 L (13.0-17.5) gm/dL Hct 26.4 L (39.0-53.0) % MCHC 30.3 L (31.0-37.0) g/dL RDW 17.5 H (11.5-15.5) % Carbon Dioxide (22-30) mmol/L BUN 42 H (9-20) mg/dL Creatinine 2.03 H (0.66-1.25) mg/dL Glucose 149 H (74-99) mg/dL POC Glucose (mg/dL) (75-99) mg/dL Hemoglobin A1c (4.0-6.0) % Assessment and Plan Assessment: Assessment #1 congestive heart failure exacerbation with evidence of right and left heart failure secondary to diastole dysfunction. #2 paroxysmal atrial fibrillation. The patient currently is in normal sinus mechanism. #3 chronic kidney disease seems to be stable #4 multiple comorbid conditions Plan #1 continue the current dose of Lasix IV #2 continue monitor the kidney function and electrolytes #3 the patient is not on any anticoagulation with history of GI bleeding in the past #4 no need to repeat the echo, the patient underwent an echo recently and that showed normal LV function #5 follow-up with the patient Thank you for allowing us participate in his care and we will continue following up with the patient
[2018-10-18] MEDS: ALLOPURINOL 100 MG TAB PO SCH ×2 (09:10→20:28)
[2018-10-18] MEDS: METOPROLOL SUCCINATE (ER) 25 MG TAB.ER.24H PO SCH (09:10)
[2018-10-18] MEDS: ASPIRIN 81 MG PO SCH (09:10)
[2018-10-18] MEDS: FLUTICASONE 50MCG/SPRAY NASAL 16GM EA NOSTRIL SCH ×2 (09:10→20:28)
[2018-10-18] MEDS: FAMOTIDINE 20 MG TAB PO SCH (09:10)
[2018-10-18] MEDS: GABAPENTIN 300 MG CAP PO SCH ×2 (09:10→20:28)
[2018-10-18] MEDS: FUROSEMIDE 10 MG/ML 4 ML VIAL IV SCH ×2 (09:11→20:28)
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
[2018-10-18] MEDS ORDERED: DARBEPOETIN ALFA 40 MCG/0.4 ML SYRINGE SQ SCH (10:00)
[2018-10-18 10:11] LABS: Appearance,Urine Clear (Clear); Bilirubin,Urine Negative (Negative); Blood,Urine Negative (Negative); Color,Urine Light Yellow; Glucose,Urine (UA) Negative (Negative); Ketones,Urine Negative (Negative); Leukocyte Esterase,Urine Negative (Negative); Nitrite,Urine Negative (Negative); Protein,Urine Negative (Negative); Specific Gravity,Urine 1.005 (1.001-1.035); Urobilinogen,Urine <2.0 mg/dL (<2.0)
--- NOTE | 2018-10-18 10:34 | P.PN ---
Subjective 83-year-old pleasant gentleman was admitted secondary to pulmonary edema from chronic diastolic dysfunction. Patient is wheezing a bit today patient does not have any history of COPD or asthma. This may be cardiac asthma patient is already on inhalational treatments I'll also start him on inhaled steroids. Patient's creatinine is improving with Lasix will good and continue this IV Lasix for 1 more day possibly of discharge tomorrow. Patient had an episode of shortness of breath yesterday and desaturation last night Constitutional: Denied any fatigue denied any fever. Cardio vascular: denied any chest pain, palpitations Gastrointestinal denied any nausea vomiting Pulmonary: As mentioned in HPI Neurologic denied any new focal deficits All inpatient medications were reviewed and appropriate changes in these medications as dictated in the interval history and assessment and plan. Objective - Vital Signs Vital signs: Vital Signs Temp 98.6 F 10/18/18 09:19 Pulse 80 10/18/18 09:42 Resp 22 10/18/18 09:42 BP 133/70 10/18/18 09:19 Pulse Ox 98 10/18/18 09:19 Intake & Output 10/17/18 10/18/18 10/18/18 18:59 06:59 18:59 Intake Total 1720 20 240 Output Total 3000 1500 Balance -1280 -1480 240 Weight 103.4 kg 102 kg Intake: IV 20 20 0.9 20 Invasive Line 1 20 Oral 1700 240 Output: Urine 3000 1500 Other: Voiding Method Toilet Toilet Toilet Urinal Urinal Urinal - Exam PHYSICAL EXAMINATION: GENERAL: The patient is alert and oriented x3, not in any acute distress. Well developed, well nourished. HEENT: Pupils are round and equally reacting to light. EOMI. No scleral icterus. No conjunctival pallor. Normocephalic, atraumatic. No pharyngeal erythema. No thyromegaly. CARDIOVASCULAR: S1 and S2 present. No murmurs, rubs, or gallops. PULMONARY: Chest is clear to auscultation, no wheezing or crackles. ABDOMEN: Soft, nontender, nondistended, normoactive bowel sounds. No palpable organomegaly. MUSCULOSKELETAL: No joint swelling or deformity. EXTREMITIES: No cyanosis, clubbing, pedal edema significantly improved NEUROLOGICAL: Gross neurological examination did not reveal any focal deficits. SKIN: No rashes. - Labs CBC & Chem 7: 10/18/18 06:51 10/18/18 06:51 Labs: Abnormal Lab Results - Last 24 Hours (Table) 10/17/18 10/17/18 10/17/18 Range/Units 06:48 11:35 16:29 RBC (4.30-5.90) m/uL Hgb (13.0-17.5) gm/dL Hct (39.0-53.0) % MCHC (31.0-37.0) g/dL RDW (11.5-15.5) % Carbon Dioxide (22-30) mmol/L BUN (9-20) mg/dL Creatinine (0.66-1.25) mg/dL Glucose (74-99) mg/dL POC Glucose (mg/dL) 196 H 281 H (75-99) mg/dL Hemoglobin A1c 7.8 H (4.0-6.0) % 10/17/18 10/17/18 10/18/18 Range/Units 19:47 20:35 05:47 RBC (4.30-5.90) m/uL Hgb (13.0-17.5) gm/dL Hct (39.0-53.0) % MCHC (31.0-37.0) g/dL RDW (11.5-15.5) % Carbon Dioxide 32 H (22-30) mmol/L BUN 39 H (9-20) mg/dL Creatinine 2.07 H (0.66-1.25) mg/dL Glucose 147 H (74-99) mg/dL POC Glucose (mg/dL) 144 H 173 H (75-99) mg/dL Hemoglobin A1c (4.0-6.0) % 10/18/18 10/18/18 Range/Units 06:51 06:51 RBC 2.97 L (4.30-5.90) m/uL Hgb 8.0 L (13.0-17.5) gm/dL Hct 26.4 L (39.0-53.0) % MCHC 30.3 L (31.0-37.0) g/dL RDW 17.5 H (11.5-15.5) % Carbon Dioxide (22-30) mmol/L BUN 42 H (9-20) mg/dL Creatinine 2.03 H (0.66-1.25) mg/dL Glucose 149 H (74-99) mg/dL POC Glucose (mg/dL) (75-99) mg/dL Hemoglobin A1c (4.0-6.0) % Assessment and Plan Plan: -Congestive heart failure chronic diastolic dysfunction with mild acute exacerbation patient was on IV Lasix patient appears to be mostly right-sided heart failure. -Chronic kidney disease stage IV: Patient's creatinine is close to his baseline probably from diabetic nephropathy, nephrology evaluated the patient patient creatinine actually improved with IV Lasix which will be continued for 1 more day -Atrial fibrillation presently rate controlled, not in A. fib at this time patient is not on anticoagulation and leave the decision to cardiology and patient. -Bronchospasm or cardiac asthma without any history of COPD or asthma in the past, we will use inhaled steroids and see how he responds along with IV Lasix. -Type 2 diabetes mellitus continue with his home regimen along with sliding scale titration of insulin depending on his blood sugars here -Peripheral neuropathy continue with gabapentin -Hypertension -Hyperlipidemia
[2018-10-18 11:34] LABS: Glucose,Whole Blood 260 mg/dL (75-99)
--- NOTE | 2018-10-18 11:49 | US ---
EXAMINATION TYPE: US kidneys/renal and bladder DATE OF EXAM: 10/18/2018 COMPARISON: None CLINICAL HISTORY: nadya. Patient states having bladder cancer x 4-5 years ago with surgical removal *Exam was performed portable EXAM MEASUREMENTS: Right Kidney: 10.4 x 5.6 x 5.5 cm Left Kidney: 10.5 x 5.4 x 5.8 cm Right Kidney: No hydronephrosis or masses seen Left Kidney: No hydronephrosis or masses seen Bladder: distended, wnl as visualized Bilateral Jets not visualized There is no evidence for hydronephrosis at this point in time. No nephrolithiasis is seen. No belen s are identified. The urinary bladder is anechoic. Bilateral ureteral jets are seen. IMPRESSION: No distinct abnormality is appreciated.
[2018-10-18 16:20] LABS: Glucose,Whole Blood 135 mg/dL (75-99)
[2018-10-18 17:39] LABS: Iron Saturation 10.71 (15.00-50.00)
[2018-10-18] MEDS: BUDESONIDE 0.5 MG/2 ML NEBU INHALATION SCH (19:34)
[2018-10-18] MEDS: PRAVASTATIN SODIUM 40 MG TAB PO SCH (20:28)
[2018-10-18 20:55] VITALS: RESP 18
[2018-10-18 21:35] LABS: Glucose,Whole Blood 239 mg/dL (75-99)
[2018-10-19 06:41] LABS: Glucose,Whole Blood 176 mg/dL (75-99)
[2018-10-19] MEDS: INSULIN ASPART 100 UNIT/ML 1 ML 10 ML VIAL SQ SCH ×2 (06:50→12:19)
[2018-10-19] MEDS: BUDESONIDE 0.5 MG/2 ML NEBU INHALATION SCH (07:29)
[2018-10-19] MEDS: IPRATROPIUM-ALBUTEROL 3 ML NEB INHALATION SCH ×2 (07:29→11:11)
[2018-10-19] MEDS: GABAPENTIN 300 MG CAP PO SCH (08:12)
[2018-10-19] MEDS: FAMOTIDINE 20 MG TAB PO SCH (08:12)
[2018-10-19] MEDS: ALLOPURINOL 100 MG TAB PO SCH (08:12)
[2018-10-19] MEDS: METOPROLOL SUCCINATE (ER) 25 MG TAB.ER.24H PO SCH (08:12)
[2018-10-19] MEDS: FUROSEMIDE 10 MG/ML 4 ML VIAL IV SCH (08:12)
[2018-10-19] MEDS: ASPIRIN 81 MG PO SCH (08:12)
[2018-10-19] MEDS: FLUTICASONE 50MCG/SPRAY NASAL 16GM EA NOSTRIL SCH (08:18)
[2018-10-19 08:26] VITALS: BP 147/70; TEMP 97.8
[2018-10-19 08:33] LABS: Calcium 8.8 mg/dL (8.4-10.2); Magnesium 2.1 mg/dL (1.6-2.3); Potassium 4.2 mmol/L (3.5-5.1)
[2018-10-19] MEDS ORDERED: DOCUSATE 100 MG CAP PO SCH (09:00)
--- NOTE | 2018-10-19 11:03 | P.DS ---
Providers Date of admission: 10/17/18 07:22 Attending physician: Ta Carrillo MD Consults: 10/17/18 04:11 Consult Physician Routine Consulting Provider: Jay Santos Consult Reason/Comments: CHF Do you want consulting provider notified?: Yes, Notify in am 10/17/18 11:21 Consult Physician Routine Consulting Provider: Ramu Delgadillo Consult Reason/Comments: ELICEO, CHF Do you want consulting provider notified?: Yes Primary care physician: [facility] Course: 83-year-old pleasant gentleman was admitted secondary to pulmonary edema from chronic diastolic dysfunction. Patient is wheezing a bit today patient does not have any history of COPD or asthma. This may be cardiac asthma patient is already on inhalational treatments I'll also start him on inhaled steroids. Patient's creatinine is improving with Lasix will good and continue this IV Lasix for 1 more day possibly of discharge tomorrow. Patient had an episode of shortness of breath yesterday and desaturation last night 10/19/2018 Patient's wheezing completely resolved will ablate the patient if patient is not desaturating patient will be discharged home patient may have asthma mild intermittent chronic. Blood require any systemic strides patient will be discharged on he'll start Symbicort and albuterol. Patient will be discharged on 40 mg by mouth twice a day of Lasix discussed with the nephrology patient has mild worsening of serum creatinine. PHYSICAL EXAMINATION: GENERAL: The patient is alert and oriented x3, not in any acute distress. Well developed, well nourished. HEENT: Pupils are round and equally reacting to light. EOMI. No scleral icterus. No conjunctival pallor. Normocephalic, atraumatic. No pharyngeal erythema. No thyromegaly. CARDIOVASCULAR: S1 and S2 present. No murmurs, rubs, or gallops. PULMONARY: Chest is clear to auscultation, no wheezing or crackles. ABDOMEN: Soft, nontender, nondistended, normoactive bowel sounds. No palpable organomegaly. MUSCULOSKELETAL: No joint swelling or deformity. EXTREMITIES: No cyanosis, clubbing, or pedal edema. NEUROLOGICAL: Gross neurological examination did not reveal any focal deficits. SKIN: No rashes. Assessment and Plan Plan: -Congestive heart failure chronic diastolic dysfunction with mild acute exacerbation, patient is fairly euvolemic now -Chronic kidney disease stage IV: Patient's creatinine is close to his baseline probably from diabetic nephropathy. -Atrial fibrillation presently rate controlled, not in A. fib at this time patient is not on anticoagulation and leave the decision to cardiology and patient. -Bronchospasm or asthma which was never diagnosed -Type 2 diabetes mellitus continue with his home regimen -Peripheral neuropathy continue with gabapentin -Hypertension -Hyperlipidemia Patient Condition at Discharge: Stable Plan - Discharge Summary Discharge Rx Participant: No New Discharge Prescriptions: New Budesonide-Formot 160-4.5 Mcg [Symbicort 160-4.5 Mcg Inhaler] 2 puff INHALATION BID #1 inhaler Continue Docusate [Colace] 100 mg PO DAILY Allopurinol [Zyloprim] 100 mg PO BID Pravastatin Sodium [Pravachol] 40 mg PO HS Albuterol Inhaler [Ventolin Hfa Inhaler] 1 - 2 puff INHALATION RT-Q4H PRN PRN Reason: Shortness Of Breath Dulaglutide [Trulicity] 0.75 mg SQ WE Cyanocobalamin [Vitamin B-12 Injection] 1,000 mcg SQ QMONTH Omeprazole 20 mg PO DAILY glipiZIDE [Glucotrol] 10 mg PO HS Fluticasone Nasal [place] [Flonase Nasal [place]] 1 spr EA NOSTRIL BID Potassium Chloride ER [K-Dur 10] 10 meq PO BID Gabapentin 600 mg PO BID Aspirin EC [Ecotrin Low Dose] 81 mg PO DAILY Metoprolol Succinate [Toprol XL] 25 mg PO DAILY Methocarbamol [Robaxin] 500 mg PO Q8H glipiZIDE [Glucotrol] 5 mg PO AC-BRKFST Dulaglutide [Trulicity] 0.75 mg SQ WEEKLY Changed Furosemide [Lasix] 40 mg PO BID #60 tab Discharge Medication List Allopurinol [Zyloprim] 100 mg PO BID 01/26/16 [History] Docusate [Colace] 100 mg PO DAILY 01/26/16 [History] Pravastatin Sodium [Pravachol] 40 mg PO HS 01/26/16 [History] Albuterol Inhaler [Ventolin Hfa Inhaler] 1 - 2 puff INHALATION RT-Q4H PRN [History] Cyanocobalamin [Vitamin B-12 Injection] 1,000 mcg SQ QMONTH 06/24/18 [History] Dulaglutide [Trulicity] 0.75 mg SQ WE 06/24/18 [History] Fluticasone Nasal [place] [Flonase Nasal [place]] 1 spr EA NOSTRIL BID 06/24/18 [ History] Omeprazole 20 mg PO DAILY 06/24/18 [History] Potassium Chloride ER [K-Dur 10] 10 meq PO BID 06/24/18 [History] glipiZIDE [Glucotrol] 10 mg PO HS 06/24/18 [History] Aspirin EC [Ecotrin Low Dose] 81 mg PO DAILY 10/11/18 [History] Gabapentin 600 mg PO BID 10/11/18 [History] Metoprolol Succinate [Toprol XL] 25 mg PO DAILY 10/11/18 [History] Dulaglutide [Trulicity] 0.75 mg SQ WEEKLY 10/16/18 [History] Methocarbamol [Robaxin] 500 mg PO Q8H 10/16/18 [History] glipiZIDE [Glucotrol] 5 mg PO AC-BRKFST 10/16/18 [History] Budesonide-Formot 160-4.5 Mcg [Symbicort 160-4.5 Mcg Inhaler] 2 puff INHALATION BID #1 inhaler 10/19/18 [Rx] Furosemide [Lasix] 40 mg PO BID #60 tab 10/19/18 [Rx] Follow up Appointment(s)/Referral(s): Jogre Miranda MD [Primary Care Provider] - 3 Days Ambulatory/Diagnostic Orders: Basic Metabolic Panel [LAB.AMB] Time Frame: 3 Days, Location: None Selected Discharge Disposition: HOME SELF-CARE
[2018-10-19 11:23] VITALS: PULSE 85
[2018-10-19 12:02] LABS: Glucose,Whole Blood 255 mg/dL (75-99)
--- NOTE | 2018-10-19 12:08 | P.PN ---
Subjective Progress Note Date: 10/19/18 Seen and examined for the follow-up of chronic kidney disease. Lying comfortable no shortness of breath feels better. Good amount of urine output. Objective - Vital Signs Vital signs: Vital Signs Temp 97.8 F 10/19/18 08:19 Pulse 85 10/19/18 11:22 Resp 18 10/19/18 08:19 BP 147/70 10/19/18 08:19 Pulse Ox 97 10/19/18 08:19 Intake & Output 10/18/18 10/19/18 10/19/18 18:59 06:59 18:59 Intake Total 500 Output Total 2300 500 Balance -1800 -500 Weight 102.5 kg Intake: IV 20 0.9 20 Oral 480 Output: Urine 2300 500 Other: Voiding Method Toilet Toilet Toilet Urinal Urinal Urinal # Voids 1 1 # Bowel Movements 1 - Exam Lying comfortable in no acute distress S1-S2 heard Lungs clear Trace edema - Labs CBC & Chem 7: 10/18/18 06:51 10/19/18 07:10 Labs: Abnormal Lab Results - Last 24 Hours (Table) 10/18/18 10/18/18 10/18/18 Range/Units 06:51 16:17 21:29 Carbon Dioxide (22-30) mmol/L BUN (9-20) mg/dL Creatinine (0.66-1.25) mg/dL Glucose (74-99) mg/dL POC Glucose (mg/dL) 135 H 239 H (75-99) mg/dL Iron 39 L (65-175) ug/dL Iron Saturation 10.71 L (15.00-50.00) Ferritin 18.5 L (22.0-322.0) ng/mL 10/19/18 10/19/18 Range/Units 06:30 07:10 Carbon Dioxide 31 H (22-30) mmol/L BUN 44 H (9-20) mg/dL Creatinine 2.24 H (0.66-1.25) mg/dL Glucose 171 H (74-99) mg/dL POC Glucose (mg/dL) 176 H (75-99) mg/dL Iron (65-175) ug/dL Iron Saturation (15.00-50.00) Ferritin (22.0-322.0) ng/mL Assessment and Plan Assessment: #1 chronic kidney disease stage III secondary to diabetic nephropathy. Creatinine at baseline #2 diastolic CHF with pulmonary edema #3 volume overload #4 hypertension with chronic kidney disease #5 anemia with chronic kidney disease Plan: #1 clinical improved renal function stable. Change IV Lasix to 40 mg by mouth twice a day at discharge. Follow-up follow-up with nephrology as outpatient in 1-2 weeks.
--- NOTE | 2018-10-19 15:06 | P.PN ---
Subjective Progress Note Date: 10/19/18 This is a pleasant 83-year-old gentleman who follows with Anthony Connell and Mina Rodriguez is his almond grinder. He has history of paroxysmal atrial fibrillation not on anticoagulation because of GI bleed, he has had undergone ablation in the past, hypertension, hyperlipidemia, no documented coronary artery disease. Patient was admitted with congestive cardiac failure. He was seen and examined today, overall feeling much better. Sodium 138 today, potassium 4.2, BUN 44 and creatinine 2.2, magnesium 2.1. Objective - Vital Signs Vital signs: Vital Signs Temp 97.8 F 10/19/18 08:19 Pulse 85 10/19/18 11:22 Resp 18 10/19/18 08:19 BP 147/70 10/19/18 08:19 Pulse Ox 97 10/19/18 08:19 Intake & Output 10/18/18 10/19/18 10/19/18 18:59 06:59 18:59 Intake Total 500 180 Output Total 2300 500 600 Balance -1800 -500 -420 Weight 102.5 kg Intake: IV 20 0.9 20 Oral 480 180 Output: Urine 2300 500 600 Other: Voiding Method Toilet Toilet Toilet Urinal Urinal Urinal # Voids 1 1 400 # Bowel Movements 1 - Exam PHYSICAL EXAMINATION: GENERAL: 83-year-old gentleman in no acute distress at the time of my examination HEENT: Head is atraumatic, normocephalic. Pupils equal, round. Sclera anicteric. Conjunctiva are clear. Mucous membranes of the mouth are moist. Neck is supple. There is no elevated jugular venous pressure. No carotid bruit is heard. HEART EXAMINATION: Heart S1, S2 normal. No murmur or gallop heard. CHEST EXAMINATION: Lungs are clear with mild diminished air entry to the bases. ABDOMEN: Soft, nontender. Bowel sounds are heard. No organomegaly noted. EXTREMITIES: 2+ peripheral pulses with trace evidence of peripheral edema and no calf tenderness noted. NEUROLOGIC patient is awake, alert and oriented 3 . . - Labs CBC & Chem 7: 10/18/18 06:51 10/19/18 07:10 Labs: Abnormal Lab Results - Last 24 Hours (Table) 10/18/18 10/18/18 10/18/18 Range/Units 06:51 16:17 21:29 Carbon Dioxide (22-30) mmol/L BUN (9-20) mg/dL Creatinine (0.66-1.25) mg/dL Glucose (74-99) mg/dL POC Glucose (mg/dL) 135 H 239 H (75-99) mg/dL Iron 39 L (65-175) ug/dL Iron Saturation 10.71 L (15.00-50.00) Ferritin 18.5 L (22.0-322.0) ng/mL 10/19/18 10/19/18 10/19/18 Range/Units 06:30 07:10 11:55 Carbon Dioxide 31 H (22-30) mmol/L BUN 44 H (9-20) mg/dL Creatinine 2.24 H (0.66-1.25) mg/dL Glucose 171 H (74-99) mg/dL POC Glucose (mg/dL) 176 H 255 H (75-99) mg/dL Iron (65-175) ug/dL Iron Saturation (15.00-50.00) Ferritin (22.0-322.0) ng/mL Assessment and Plan Plan: Assessment #1 congestive heart failure exacerbation with evidence of right and left heart failure secondary to diastole dysfunction. #2 paroxysmal atrial fibrillation. The patient currently is in normal sinus mechanism. #3 chronic kidney disease seems to be stable #4 multiple comorbid conditions Plan We will discontinue the IV Lasix and start the patient on Lasix 60 mg one tablet by mouth twice a day today. Patient may be able to be discharged home today from our perspective to follow-up with his almond grinder post discharge. DNP note has been reviewed, I agree with a documented findings and plan of care. Patient was seen and examined.
[2018-10-19] MEDS ORDERED: FUROSEMIDE 20 MG TAB PO SCH (16:00)
[2018-10-23] MEDS ORDERED: NON-FORMULARY DRUG (Dulaglutide [Trulicity] 0.75 MG) SQ SCH (09:00)
== END 2018-10-19 12:55 | disposition home or self-care (01) | DRG 291 ==
LOC: EC 16:06 → 3SCARD 17:51 → OBSVTOIN 10-17 07:22
PROVIDERS: ADMIT Internal Medicine; ATTEND Internal Medicine
DX: I13.0 Hypertensive heart and chronic kidney disease with heart failure and stage 1 through stage 4 chronic kidney disease, or unspecified chronic kidney disease (principal); I50.33 Acute on chronic diastolic (congestive) heart failure; N17.9 Acute kidney failure, unspecified; N18.4 Chronic kidney disease, stage 4 (severe); D63.1 Anemia in chronic kidney disease; E11.21 Type 2 diabetes mellitus with diabetic nephropathy; E11.22 Type 2 diabetes mellitus with diabetic chronic kidney disease; E78.5 Hyperlipidemia, unspecified; E11.42 Type 2 diabetes mellitus with diabetic polyneuropathy; I44.0 Atrioventricular block, first degree; I48.0 Paroxysmal atrial fibrillation; Z96.652 Presence of left artificial knee joint; Z96.643 Presence of artificial hip joint, bilateral; J45.909 Unspecified asthma, uncomplicated; K29.50 Unspecified chronic gastritis without bleeding; Z79.4 Long term (current) use of insulin; Z79.82 Long term (current) use of aspirin; Z79.899 Other long term (current) drug therapy; Z80.0 Family history of malignant neoplasm of digestive organs; Z82.5 Family history of asthma and other chronic lower respiratory diseases; Z85.51 Personal history of malignant neoplasm of bladder; Z98.49 Cataract extraction status, unspecified eye; Z79.51 Long term (current) use of inhaled steroids
CPT/HCPCS: 36415; 71046; 76770; 80048; 80053; 81003; 82550; 82553; 82728; 83036; 83540; 83550; 83735; 83880; 84484; 85025; 85027; 85610; 85730; 93005; 94640; 96374; 99285

== ENCOUNTER 2018-11-06 21:47 | Inpatient (IN) | payer BC, MEDICARE ==
[2018-11-06 23:07] LABS: Anisocytosis Slight; Basophils # (A) 0.1 k/uL (0-0.2); Basophils % (A) 1 %; Eosinophils # (A) 0.2 k/uL (0-0.7); Eosinophils % (A) 2 %; HCT 27.8 % (39.0-53.0); HGB 8.7 gm/dL (13.0-17.5); Hypochromasia Slight; Lymphocytes # (A) 0.8 k/uL (1.0-4.8); Lymphocytes % (A) 7 %; MCH 26.8 pg (25.0-35.0); MCHC 31.3 g/dL (31.0-37.0); MCV 85.5 fL (80.0-100.0); Mean Platelet Volume 7.5; Monocytes # (A) 0.7 k/uL (0-1.0); Monocytes % (A) 6 %; Neutrophils # (A) 8.9 k/uL (1.3-7.7); Neutrophils % (A) 83 %; Platelet Count 212 k/uL (150-450); RBC 3.25 m/uL (4.30-5.90); RDW 17.3 % (11.5-15.5); WBC 10.7 k/uL (3.8-10.6)
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
[2018-11-06 23:22] LABS: INR 0.9 (<1.2); Partial Thromboplastin Time 22.5 sec (22.0-30.0); Prothrombin Time 9.7 sec (9.0-12.0)
[2018-11-06 23:23] LABS: Calcium 8.6 mg/dL (8.4-10.2); Potassium 4.2 mmol/L (3.5-5.1); Total Bilirubin 0.4 mg/dL (0.2-1.3); Total Protein 6.8 g/dL (6.3-8.2)
--- NOTE | 2018-11-06 23:23 | XR ---
EXAM: XR Chest, 2 Views CLINICAL HISTORY: Altered mental status TECHNIQUE: Frontal and lateral views of the chest. COMPARISON: Chest x-ray dated 10/16/2018 FINDINGS: Lungs: Unremarkable. No consolidation. Pleural space: Unremarkable. No pneumothorax. Heart: Heart is enlarged. Mediastinum: Unremarkable. Bones/joints: Unremarkable. IMPRESSION: No acute findings.
--- NOTE | 2018-11-06 23:30 | CT ---
EXAM: CT Head Without Intravenous Contrast CLINICAL HISTORY: Slurred speech TECHNIQUE: Axial computed tomography images of the head/brain without intravenous contrast. CTDI is 0.085, 0.085, 49.1 mGy and DLP is 1137.4 mGy-cm. This CT exam was performed using one or more of the following dose reduction techniques: automated exposure control, adjustment of the mA and/or kV according to patient size, and/or use of iterative reconstruction technique. COMPARISON: No relevant prior studies available. FINDINGS: Brain: No acute infarct, hemorrhage, mass or edema. Chronic small vessel ischemic disease and senescent changes. Ventricles: Unremarkable. No ventriculomegaly. Bones/joints: No acute osseous abnormality. Soft tissues: Unremarkable. Sinuses: Mild mucosal thickening in the paranasal sinuses. Mastoid air cells: Unremarkable as visualized. No mastoid effusion. IMPRESSION: No acute findings.
[2018-11-06 23:34] LABS: Creatine Kinase MB 1.8 ng/mL (0.0-2.4); Troponin I 0.013 ng/mL (0.000-0.034)
[2018-11-07] MEDS ORDERED: NALOXONE 0.4 MG/ML 1 ML VIAL IV PRN (00:23)
[2018-11-07] MEDS ORDERED: SODIUM CHLORIDE 0.9% 1,000 ML IV SCH (00:30)
[2018-11-07 06:14] LABS: Glucose,Whole Blood 303 mg/dL (75-99)
[2018-11-07] MEDS: INSULIN ASPART (NovoLOG) 100 UNIT/ML VIAL SQ SCH ×4 (06:33→20:25)
[2018-11-07] MEDS: glipiZIDE 5 MG TAB PO SCH (06:33)
[2018-11-07] MEDS: ALBUTEROL NEBULIZED 2.5 MG/3 ML INHALATION PRN ×2 (08:13→11:34)
[2018-11-07] MEDS: SYMBICORT 160-4.5 MCG INHALER INHALATION SCH ×2 (08:13→20:55)
[2018-11-07] MEDS: GABAPENTIN 300 MG CAP PO SCH ×2 (08:33→20:23)
[2018-11-07] MEDS: ALLOPURINOL 100 MG TAB PO SCH ×2 (08:33→20:22)
[2018-11-07] MEDS: ASPIRIN 81 MG PO SCH (08:33)
[2018-11-07] MEDS: DOCUSATE 100 MG CAP PO SCH (08:34)
[2018-11-07] MEDS: PANTOPRAZOLE 40 MG TABLET PO SCH (08:34)
[2018-11-07] MEDS: METOPROLOL SUCCINATE (ER) 25 MG TAB.ER.24H PO SCH (08:34)
[2018-11-07] MEDS: POTASSIUM CHLORIDE ER 10 MEQ TAB.ER.PRT PO SCH ×2 (08:34→20:22)
[2018-11-07] MEDS: FLUTICASONE 50MCG/SPRAY NASAL 16GM EA NOSTRIL SCH ×2 (08:34→20:25)
[2018-11-07] MEDS ORDERED: FUROSEMIDE 40 MG TAB PO SCH (09:00)
[2018-11-07 12:01] LABS: Glucose,Whole Blood 292 mg/dL (75-99)
[2018-11-07 12:06] LABS: Hemoglobin A1C 8.5 % (4.0-6.0)
[2018-11-07] MEDS ORDERED: FUROSEMIDE 10 MG/ML 4 ML VIAL IV STA (13:40)
[2018-11-07] MEDS: HEPARIN SODIUM,PORCINE 5,000 UNIT/ML 1 ML VIAL SQ SCH ×2 (14:03→20:24)
--- NOTE | 2018-11-07 14:14 | XR ---
EXAMINATION TYPE: XR chest 1V portable DATE OF EXAM: 11/07/2018 Comparison: 11/06/2018 Clinical History: 83 year-old male shortness of breath, weakness, fluid overload Findings: Heart borderline enlarged. Some focal patchy left basilar opacities noted. No sizable effusion or con solidation seen. Full-thickness rotator cuff tear on the right. Impression: Borderline heart size. No abby pulmonary edema. There is mild patchy left basilar atelectasis or inf iltrate.
[2018-11-07 14:38] LABS: Appearance,Urine Clear (Clear); Bilirubin,Urine Negative (Negative); Blood,Urine Negative (Negative); Color,Urine Light Yellow; Glucose,Urine (UA) 2+ (Negative); Ketones,Urine Negative (Negative); Leukocyte Esterase,Urine Negative (Negative); Nitrite,Urine Negative (Negative); PH, Urine 5.5 (5.0-8.0); Protein,Urine Negative (Negative); Specific Gravity,Urine 1.006 (1.001-1.035); Urobilinogen,Urine <2.0 mg/dL (<2.0)
--- NOTE | 2018-11-07 15:57 | US ---
EXAMINATION TYPE: US carotid duplex BILAT DATE OF EXAM: 11/07/2018 COMPARISON: NONE CLINICAL HISTORY: 83-year-old male stroke; Bilateral hand numbness per patient history. TECHNIQUE: Carotid duplex ultrasound examination. Indirect Doppler criteria was utilized. FINDINGS: EXAM MEASUREMENTS: RIGHT: Peak Systolic Velocity (PSV) cm/sec ----- Right CCA: 40.6 ----- Right ICA: 68.8 ----- Right ECA: 55.6 ICA/CCA ratio: 1.7 RIGHT: End Diastole cm/sec ----- Right CCA: 13.1 ----- Right ICA: 21.5 ----- Right ECA: 6.2 LEFT: Peak Systolic Velocity (PSV) cm/sec ----- Left CCA: 72.9 ----- Left ICA: 57.2 ----- Left ECA: 54.6 ICA/CCA ratio: 0.8 LEFT: End Diastole cm/sec ----- Left CCA: 17.2 ----- Left ICA: 15.2 ----- Left ECA: 12.8 VERTEBRALS (direction of flow): Right Vertebral: Antegrade Left Vertebral: Antegrade Rhythm: Normal [facility] Coordinator notes:Irregular, mixed plaque is noted at bilateral carotid bifurcations, but PSV is wnl bilaterally. IMPRESSION: Moderate atherosclerotic changes at both bifurcations. No hemodynamically significant stenosis apprec iated in either internal carotid artery. Criteria for Assigning % of Stenosis / Diameter reduction (Estimation based on the indirect measurements of the internal carotid artery velocities (ICA PSV). 1. Normal (no stenosis)=ICA PSV < 125 cm/s: ratio < 2.0: ICA EDV<40 cm/s. 2. Less than 50% stenosis=ICA PSV < 125 cm/s: ratio < 2.0: ICA EDV<40 cm/s. 3. 50 to 69% stenosis=ICA PSV of 125 to 230 cm/s: ration 2.0 ? 4.0: ICA EDV 40-100 cm/s. 4. Greater than 70% stenosis to near occlusion= ICA PSV > 230 cm/s: ratio > 4.0: ICA EDV > 100 cm/s. 5. Near occlusion= ICA PSV velocities may be low or undetectable: variable ratio and ICA EDV. 6. Total occlusion=unable to detect flow.
--- NOTE | 2018-11-07 16:06 | MR ---
EXAMINATION TYPE: MR brain wo con DATE OF EXAM: 11/07/2018 COMPARISON: CT dated 11/06/2018 HISTORY: Slurred speech TECHNIQUE: Multiplanar, multisequence images of the brain and brainstem is performed without intravenous contras t. FINDINGS: Diffusion weighted images demonstrate no evidence of a recent infarct or other diffusion ab normality. There is no extra-axial fluid collection or significant white matter signal abnormality. Small oval FLAIR hypointense and T2 hyperintense structure within the left middle cranial fossa is qu estionably extra-axial on coronal T2-weighted images and may represent a very small arachnoid cyst, h owever small distal aneurysm is also possibility. T2/FLAIR hyperintense linear vasogenic edema is devon reciated within the temporal lobe and therefore examination with contrast is recommended to exclude s mall underlying mass. There is moderate burden periventricular white matter change demonstrated as T2/FLAIR hyperintensity with small foci of subcortical T2/FLAIR hyperintensity that are sub-3 mm. Again none of these restric radha diffusion. There is scant mucosal thickening in the ethmoid sinuses as seen on the prior CT. Remaining paranasal sinuses and mastoid air cells are well aerated. Small amount of fluid surrounds the optic nerves jacqui t can be seen in increased intracranial pressure. The ventricular system and cisternal spaces are symmetrically prominent compatible with age-related v olume loss. Midline structures demonstrate normal morphology. The craniocervical junction appears within normal limits. The dural venous sinuses appear patent. The visualized sinuses are clear and the globes are intact. IMPRESSION: 1. No acute infarct or midline shift. 2. Overall moderate burden nonspecific white matter change, most commonly on the basis of chronic vangie roangiopathy. 3. Abnormal findings within the left temporal lobe for which postcontrast T1-weighted MR sequences ar e recommended to evaluate for either small intracranial aneurysm or small mass.
--- NOTE | 2018-11-07 16:15 | HP ---
HISTORY AND PHYSICAL DATE OF SERVICE: 11/07/2018 CHIEF COMPLAINTS: Slurred speech as well as difficulty in walking and difficulty in vision. HISTORY OF PRESENT ILLNESS: This 83-year-old gentleman with a past medical history of multiple medical problems, such as history of atrial fibrillation, asthma, CHF, diabetes mellitus, type 2, hyperlipidemia, history of ablation, back surgery, being followed by Dr. Miranda in the outpatient setting, was recently admitted with CHF and other multiple medical issues. The patient apparently also had paroxysmal atrial fibrillation. The patient had atrial flutter also once and patient had ablation x2. The patient had GI bleed about 4 months ago and Eliquis was on hold. Currently the family noted some change in mental status and some weakness of the left arm, short-lasting, but subsequently the patient had difficulty walking. Patient also was complaining of slanted vision with some visual difficulties; not really diplopia; and the patient came to [facility] and was admitted for further evaluation and treatment. The patient also had renal failure. His creatinine was found to be elevated at 2.28. The patient was admitted for further evaluation and treatment. There is no history of any fever, rigor or chills. No history of headache, loss of consciousness, seizures at this time. Blood sugar is also elevated. PAST MEDICAL HISTORY: 1. History of atrial fibrillation. 2. History of asthma. 3. History of CHF. 4. Diabetes mellitus, type 2. 5. Hyperlipidemia. 6. History of ablation. 7. Back surgery. HOME MEDICATIONS: 1. Glucotrol 10 mg with breakfast and 5 mg at bedtime. 2. Pravachol 40 mg at bedtime. 3. K-Dur 10 mEq p.o. b.i.d. 4. Omeprazole 20 mg p.o. daily. 5. Gabapentin 600 mg t.i.d. 6. Lasix 40 mg p.o. b.i.d. 7. Trulicity 0.7 mg subcutaneously weekly. 8. Symbicort 160/4.5 two puffs b.i.d. 9. Zyloprim 100 mg p.o. b.i.d. ALLERGIES: 1. ADHESIVE TAPES. 2. CODEINE. 3. NORCO. 4. MORPHINE. FAMILY HISTORY: History of COPD in the family. SOCIAL HISTORY: Occasional alcohol intake. No history of smoking. REVIEW OF SYSTEMS: ENT: Diminished hearing. Diminished vision. Otherwise as mentioned earlier. CARDIOVASCULAR SYSTEM: No angina, palpitations. RESPIRATORY SYSTEM: As mentioned earlier. GI: No nausea, vomiting. : No dysuria or retention. NERVOUS SYSTEM: As mentioned earlier. ALLERGY/IMMUNOLOGY: No asthma, hayfever. MUSCULOSKELETAL: As mentioned earlier. HEMATOLOGY/ONCOLOGY: No history of anemia. ENDOCRINE: As mentioned earlier. CONSTITUTIONAL: As mentioned earlier. DERMATOLOGY: Negative. RHEUMATOLOGY: Negative. PSYCHIATRY: As mentioned earlier. PHYSICAL EXAMINATION: Patient alert and oriented x3. Pulse is 75, blood pressure 139/68, respiration 18, temperature 97 degrees, pulse ox 97% on room air. HEENT: Conjunctivae normal. NECK: No jugular venous distention. CARDIOVASCULAR SYSTEM: S1, S2 muffled. RESPIRATORY SYSTEM: Breath sounds diminished at the bases. A few scattered rhonchi. Expiratory wheezing also present. ABDOMEN: Soft, non-tender. Obese. LEGS: No edema. No swelling. NERVOUS SYSTEM: Higher functions as mentioned earlier. Minimal nystagmus on the left eye. Otherwise, no diplopia noted. Vision is diminished. Cranial nerves normal. Moves all 4 limbs. Does have some cerebellar dysfunction, but the patient has significant gait dysfunction and weakness also. Gait ataxia present. SKIN: No ulcer, rash, bleeding. JOINTS: No active deforming arthropathy. LAB STUDIES: WBC 10.7, hemoglobin 8.7. Sodium 134, potassium 4.2. Creatinine is 2.28. ASSESSMENT: 1. Slurring of speech, weakness for further evaluation. Possible acute stroke or transient ischemic attack. Rule out vertebrobasilar stroke. 2. Increased creatinine with chronic kidney disease, stage III. 3. Diabetes mellitus, type 2. 4. Hyponatremia. 5. History atrial fibrillation. 6. History of ablation. 7. Increased white count. 8. History of asthma. 9. History of congestive heart failure. 10.Hypertension. 11.Hyperlipidemia. 12.History of renal disease. 13.Sciatica, degenerative joint disease. 14.History of back surgery. 15.Cardiac ablation. RECOMMENDATIONS AND DISCUSSION: In this 83-year-old gentleman who presented with multiple complex medical issues, at this time I recommend to continue current management, continue symptomatic treatment. Otherwise at this time I recommend continuing with the neuro checks and MRI of the brain and neurovascular workup, including 2D echo and carotid Doppler. The MRA is positive for stroke. The patient needs to be transferred, which I discussed at length with the family, who understands and agrees. Otherwise we will continue with the rest of the medications and monitor creatinine closely. I would also consult Cardiology. Guarded prognosis. Further recommendations to follow. Resume the home medications. Hold nephrotoxic medications. A copy of this dictation is being forwarded to Dr. Miranda, who is the primary physician. [id number] / IJN: [id number] /
[2018-11-07] MEDS: IPRATROPIUM-ALBUTEROL 3 ML NEB INHALATION PRN (16:22)
[2018-11-07 17:10] LABS: Glucose,Whole Blood 271 mg/dL (75-99)
[2018-11-07] MEDS: FUROSEMIDE 10 MG/ML 4 ML VIAL IV SCH (20:25)
[2018-11-07 20:27] LABS: Glucose,Whole Blood 256 mg/dL (75-99)
[2018-11-07] MEDS: IPRATROPIUM-ALBUTEROL 3 ML NEB INHALATION SCH (20:55)
[2018-11-07] MEDS ORDERED: glipiZIDE 10 MG TAB PO SCH (21:00)
[2018-11-07] MEDS ORDERED: PRAVASTATIN SODIUM 40 MG TAB PO SCH (21:00)
[2018-11-07] MEDS: ACETAMINOPHEN TAB 325 MG TAB PO PRN (21:28)
[2018-11-08] MEDS: ACETAMINOPHEN TAB 325 MG TAB PO PRN (02:24)
[2018-11-08] MEDS: IPRATROPIUM-ALBUTEROL 3 ML NEB INHALATION PRN (02:57)
[2018-11-08 07:55] LABS: Anisocytosis Slight; Basophils % (A) 0 %; Eosinophils # (A) 0.2 k/uL (0-0.7); Eosinophils % (A) 2 %; HCT 26.4 % (39.0-53.0); HGB 8.1 gm/dL (13.0-17.5); Hypochromasia Slight; Lymphocytes # (A) 0.9 k/uL (1.0-4.8); Lymphocytes % (A) 10 %; MCHC 30.9 g/dL (31.0-37.0); MCV 87.5 fL (80.0-100.0); Mean Platelet Volume 8.7; Monocytes # (A) 0.5 k/uL (0-1.0); Monocytes % (A) 6 %; Neutrophils # (A) 6.8 k/uL (1.3-7.7); Neutrophils % (A) 80 %; Platelet Count 177 k/uL (150-450); RBC 3.01 m/uL (4.30-5.90); RDW 17.4 % (11.5-15.5); WBC 8.6 k/uL (3.8-10.6)
[2018-11-08 08:11] LABS: Calcium 8.5 mg/dL (8.4-10.2); Potassium 3.5 mmol/L (3.5-5.1)
[2018-11-08] MEDS: PANTOPRAZOLE 40 MG TABLET PO SCH (08:17)
[2018-11-08] MEDS: glipiZIDE 5 MG TAB PO SCH (08:17)
[2018-11-08] MEDS: SYMBICORT 160-4.5 MCG INHALER INHALATION SCH (08:17)
[2018-11-08] MEDS: DOCUSATE 100 MG CAP PO SCH (08:17)
[2018-11-08] MEDS: IPRATROPIUM-ALBUTEROL 3 ML NEB INHALATION SCH ×2 (08:17→13:26)
[2018-11-08] MEDS: POTASSIUM CHLORIDE ER 10 MEQ TAB.ER.PRT PO SCH (08:17)
[2018-11-08] MEDS: ALLOPURINOL 100 MG TAB PO SCH (08:17)
[2018-11-08] MEDS: METOPROLOL SUCCINATE (ER) 25 MG TAB.ER.24H PO SCH (08:17)
[2018-11-08] MEDS: HEPARIN SODIUM,PORCINE 5,000 UNIT/ML 1 ML VIAL SQ SCH (08:18)
[2018-11-08] MEDS: GABAPENTIN 300 MG CAP PO SCH (08:18)
[2018-11-08] MEDS: ASPIRIN 81 MG PO SCH (08:18)
[2018-11-08] MEDS: INSULIN ASPART (NovoLOG) 100 UNIT/ML VIAL SQ SCH ×3 (08:18→17:30)
[2018-11-08] MEDS: FUROSEMIDE 10 MG/ML 4 ML VIAL IV SCH (08:18)
[2018-11-08 08:32] VITALS: RESP 17
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
[2018-11-08] MEDS: FLUTICASONE 50MCG/SPRAY NASAL 16GM EA NOSTRIL SCH (10:46)
--- NOTE | 2018-11-08 11:01 | DS ---
DISCHARGE SUMMARY DATE OF SERVICE: 11/08/2018 FINAL DIAGNOSES: 1. Slurring of speech, weakness, possible acute transient ischemic attack. 2. Suspected abnormal findings in the left temporal lobe, rule out aneurysm or a small mass. 3. Increased creatinine with chronic kidney disease stage III. 4. Diabetes mellitus type 2. 5. Hyponatremia. 6. History of atrial fibrillation. 7. History of ablation. 8. Increased WBC. 9. History of asthma. 10.History of congestive heart failure. 11.Hypertension. 12.Hyperlipidemia. 13.History of renal disease. 14.Degenerative joint disease. 15.History of back surgery. 16.Cardiac ablation history. DISCHARGE DISPOSITION: The patient will be discharged in a stable condition with guarded prognosis. The patient will be transferred to [facility] for further evaluation and treatment. Total time taken 35 minutes. HISTORY OF PRESENT ILLNESS: This is an 83-year-old gentleman with a past medical history with multiple medical issues, admitted with dehydration and chronic kidney disease. Patient was treated symptomatically. Patient improved significantly. Patient treated with antiplatelet agents. MRA showed findings as above. I have discussed the case with the hospitalist in [facility] for Neurology evaluation and possible interventional Neurology consultation as well. The patient will be transferred in A stable condition with guarded prognosis. On exam, vitals are stable. CARDIOVASCULAR: S1, S2. ABDOMEN: Soft. NERVOUS SYSTEM: No focal deficits. CURRENT MEDICATIONS: Per the med list. MMODL / IJN: [id number] / MTDD
[2018-11-08 12:03] LABS: Glucose,Whole Blood 270 mg/dL (75-99)
[2018-11-08 12:03] LABS: Glucose,Whole Blood 284 mg/dL (75-99)
--- NOTE | 2018-11-08 14:06 | ECHOF ---
Referral Reason: MEASUREMENTS -------- HEIGHT: 180.3 cm WEIGHT: 101.6 kg BP: RVIDd: 4.3 cm (< 3.3) IVSd: 1.2 cm (0.6 - 1.1) LVIDd: 5.1 cm (3.9 - 5.3) LVPWd: 1.3 cm (0.6 - 1.1) IVSs: 1.9 cm LVIDs: 3.6 cm LVPWs: 2.0 cm Ao Diam: 2.8 cm (2.0 - 3.7) AV Cusp: 1.8 cm (1.5 - 2.6) LA Diam: 4.1 cm (2.7 - 3.8) MV EXCURSION: 16.009 mm (> 18.000) MV EF SLOPE: 87 mm/s (70 - 150) EPSS: 0.5 cm MV E Hitesh: 0.89 m/s MV DecT: 279 ms MV A Hitesh: 0.31 m/s MV E/A Ratio: 2.90 RAP: 5.00 mmHg RVSP: 51.81 mmHg FINDINGS -------- Sinus rhythm. This was a technically difficult study with suboptimal views. The left ventricular size is normal. There is mild concentric left ventricular hypertrophy. Overa ll left ventricular systolic function is low-normal with, an EF between 50 - 55 %. The right ventricle is severely enlarged. The left atrium is mildly dilated. RA appears enlarged. xx ml of Lumason was utilized for enhancement of images. Aortic valve is trileaflet and is mildly thickened. The mitral valve leaflets are mildly thickened. Mild mitral regurgitation is present. Severe tricuspid regurgitation present. There is moderate pulmonary hypertension. The right ventr icular systolic pressure, as measured by Doppler, is 51.81mmHg. Pulmonic valve appears structurally normal. The aortic root size is normal. IVC Not well visulized. The pericardium is normal. CONCLUSIONS -------- 1. Sinus rhythm. 2. This was a technically difficult study with suboptimal views. 3. The left ventricular size is normal. 4. There is mild concentric left ventricular hypertrophy. 5. Overall left ventricular systolic function is low-normal with, an EF between 50 - 55 %. 6. The right ventricle is severely enlarged. 7. The left atrium is mildly dilated. 8. RA appears enlarged. 9. xx ml of Lumason was utilized for enhancement of images. 10. Aortic valve is trileaflet and is mildly thickened. 11. The mitral valve leaflets are mildly thickened. 12. Mild mitral regurgitation is present. 13. Severe tricuspid regurgitation present. 14. There is moderate pulmonary hypertension. 15. The right ventricular systolic pressure, as measured by Doppler, is 51.81mmHg. 16. Pulmonic valve appears structurally normal. 17. The aortic root size is normal. 18. IVC Not well visulized. 19. The pericardium is normal. MICROFILM TECHNICIAN: Kenzie Ch RDCS
[2018-11-08 16:39] LABS: Glucose,Whole Blood 262 mg/dL (75-99)
[2018-11-08 17:34] VITALS: BP 135/70; PULSE 85; TEMP 98.2
[2018-11-14] MEDS ORDERED: PATIENT'S OWN MED (Dulaglutide [Trulicity] 0.75 MG) SQ SCH (09:00)
== END 2018-11-08 18:38 | disposition short-term general hospital (02) | DRG 69 ==
LOC: EC 21:47 → 3SCARD 11-07 00:26 → OBSVTOIN 11-08 09:36
PROVIDERS: ADMIT Hospitalist; ATTEND Hospitalist
DX: G45.9 Transient cerebral ischemic attack, unspecified (principal); E87.1 Hypo-osmolality and hyponatremia; I13.0 Hypertensive heart and chronic kidney disease with heart failure and stage 1 through stage 4 chronic kidney disease, or unspecified chronic kidney disease; I50.32 Chronic diastolic (congestive) heart failure; N17.9 Acute kidney failure, unspecified; I67.1 Cerebral aneurysm, nonruptured; G93.89 Other specified disorders of brain; E11.22 Type 2 diabetes mellitus with diabetic chronic kidney disease; E11.51 Type 2 diabetes mellitus with diabetic peripheral angiopathy without gangrene; I48.0 Paroxysmal atrial fibrillation; E86.0 Dehydration; G62.9 Polyneuropathy, unspecified; I44.4 Left anterior fascicular block; N18.3 Chronic kidney disease, stage 3 (moderate); D50.9 Iron deficiency anemia, unspecified; E78.5 Hyperlipidemia, unspecified; I44.0 Atrioventricular block, first degree; J45.909 Unspecified asthma, uncomplicated; M19.90 Unspecified osteoarthritis, unspecified site; M54.30 Sciatica, unspecified side; M10.9 Gout, unspecified; Z79.51 Long term (current) use of inhaled steroids; Z79.82 Long term (current) use of aspirin; Z79.84 Long term (current) use of oral hypoglycemic drugs; Z79.899 Other long term (current) drug therapy; Z85.51 Personal history of malignant neoplasm of bladder; Z88.6 Allergy status to analgesic agent; Z88.5 Allergy status to narcotic agent; Z96.643 Presence of artificial hip joint, bilateral; Z96.652 Presence of left artificial knee joint; Z98.42 Cataract extraction status, left eye; Z98.41 Cataract extraction status, right eye; Z96.1 Presence of intraocular lens; Z80.0 Family history of malignant neoplasm of digestive organs; Z82.5 Family history of asthma and other chronic lower respiratory diseases
CPT/HCPCS: 36415; 70450; 70551; 71045; 71046; 80048; 80053; 80061; 81003; 82550; 82553; 83036; 84484; 85025; 85610; 85730; 93306; 93880; 94640; 94760; 99285

== ENCOUNTER 2019-10-13 13:43 | Inpatient (IN) | payer BC, MEDICARE ==
[2019-10-13] MEDS ORDERED: IPRATROPIUM-ALBUTEROL 3 ML NEB INHALATION STA (14:13)
[2019-10-13] MEDS ORDERED: FUROSEMIDE 10 MG/ML 4 ML VIAL IV STA (14:13)
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
--- NOTE | 2019-10-13 14:47 | XR ---
EXAMINATION TYPE: XR chest 2V DATE OF EXAM: 10/13/2019 COMPARISON: Chest x-ray November 07, 2018. HISTORY: History of CHF and shortness of breath TECHNIQUE: Frontal and lateral views of the chest are obtained. FINDINGS: There is chronic parenchymal changes bilaterally without suspicious focal air space opacit y or pneumothorax seen. Small to tiny bilateral pleural effusions with blunting of posterior costophr enic angles noted on current study. The cardiac silhouette size is mildly enlarged with atherosclerot ic aorta. The osseous structures are intact. IMPRESSION: Chronic frontal changes and mild cardiomegaly with small to tiny bilateral pleural effus ions. Cannot exclude CHF exacerbation. No new suspicious focal infiltrate.
[2019-10-13 14:52] LABS: Basophils % (A) 1 %; Eosinophils # (A) 0.1 k/uL (0-0.7); Eosinophils % (A) 2 %; HCT 31.4 % (39.0-53.0); HGB 10.3 gm/dL (13.0-17.5); Lymphocytes # (A) 0.4 k/uL (1.0-4.8); Lymphocytes % (A) 7 %; MCH 36.2 pg (25.0-35.0); MCHC 32.9 g/dL (31.0-37.0); Macrocytosis Marked; Mean Platelet Volume 8.3; Monocytes # (A) 0.2 k/uL (0-1.0); Monocytes % (A) 4 %; Neutrophils # (A) 5.4 k/uL (1.3-7.7); Neutrophils % (A) 86 %; Platelet Count 153 k/uL (150-450); RBC 2.86 m/uL (4.30-5.90); RDW 14.4 % (11.5-15.5); WBC 6.3 k/uL (3.8-10.6)
[2019-10-13 15:02] LABS: Calcium 8.5 mg/dL (8.4-10.2); Magnesium 2.2 mg/dL (1.6-2.3); Potassium 4.9 mmol/L (3.5-5.1); Total Bilirubin 0.7 mg/dL (0.2-1.3); Total Protein 6.3 g/dL (6.3-8.2)
[2019-10-13 15:04] LABS: Partial Thromboplastin Time 29.1 sec (22.0-30.0); Prothrombin Time 10.4 sec (9.0-12.0)
[2019-10-13] MEDS ORDERED: methylPREDNISolone SOD SUCCI 125 MG/2 ML VIAL IV STA (16:55)
[2019-10-13] MEDS: SYMBICORT 160-4.5 MCG INHALER INHALATION SCH (20:06)
[2019-10-13] MEDS: IPRATROPIUM-ALBUTEROL 3 ML NEB INHALATION SCH (20:06)
[2019-10-13 20:29] LABS: Glucose,Whole Blood 210 mg/dL (75-99)
[2019-10-13] MEDS: INSULIN ASPART (NovoLOG) 100 UNIT/ML VIAL SQ SCH (20:39)
[2019-10-13] MEDS: GABAPENTIN 300 MG CAP PO SCH (20:40)
[2019-10-13] MEDS: ALLOPURINOL 100 MG TAB PO SCH (20:40)
[2019-10-13] MEDS: FERROUS SULFATE 325 MG TAB PO SCH (20:40)
[2019-10-13] MEDS: ACETAMINOPHEN TAB 500 MG TAB PO SCH (20:40)
[2019-10-13] MEDS: POTASSIUM CHLORIDE ER 10 MEQ TAB.ER.PRT PO SCH (20:40)
[2019-10-13] MEDS: APIXABAN 2.5 MG TABLET PO SCH (20:40)
[2019-10-13] MEDS: PRAVASTATIN SODIUM 40 MG TAB PO SCH (20:40)
[2019-10-13] MEDS: glipiZIDE 5 MG TAB PO SCH (20:50)
[2019-10-13] MEDS: IPRATROPIUM-ALBUTEROL 3 ML NEB INHALATION PRN (23:45)
[2019-10-14] MEDS: methylPREDNISolone SOD SUCCI 125 MG/2 ML VIAL IV SCH ×5 (00:08→23:41)
--- NOTE | 2019-10-14 00:08 | HP ---
HISTORY AND PHYSICAL DATE OF SERVICE: 10/13/2019. CHIEF COMPLAINT: Shortness of breath. HISTORY OF PRESENT ILLNESS: This 84-year-old gentleman with a past medical history of multiple medical problems including history atrial fibrillation, history of CHF, history of diabetes, hypertension, hyperlipidemia, history of cardiac ablation, history of DJD, being followed by Dr. Miranda in the outpatient setting, was complaining of increasing shortness of breath and also increasing edema. The swelling was initially started in the both lower limbs which spread to the abdomen. The is also distended. Because of multiple difficulties, the patient came to the emergency room and was admitted for further evaluation and treatment. The difficulty breathing was exacerbated for the last 3 days. Patient also had complains of some cough also, some wheezing was also noted. A 2D echo with Doppler which was done early last year about a year ago showed ejection fraction about 50-55 percent and severe tricuspid regurgitation and moderate pulmonary hypertension. There is no history of fever, rigors. No history of headache, loss of consciousness, seizures. A chest x-ray done in the ER which was personally reviewed by me showed evidence of fluid overload. There is no history of fever, rigors, chills at this time. PAST MEDICAL HISTORY: Atrial fibrillation, history of asthma, chest pain, CHF, diabetes type 2, hyperlipidemia, history of cardiac ablation, back surgery. MEDICATIONS: Home medications are reviewed and include: 1. Vitamin D3 2000 daily. 2. Colace 100 mg p.o. daily. 3. Toprol-XL 25 mg p.o. daily. 4. Flonase 2 sprays each nostril daily. 5. Tylenol Arthritis 1300 mg p.o. b.i.d. 6. Eliquis 2.5 mg p.o. b.i.d. 7. Lasix 20 mg p.o. b.i.d. 8. Ventolin HFA 2 puffs q.6h p.r.n. 9. Vitamin B12 1000 mcg Q monthly. 10.Glucotrol XL 10 mg q.a.m. and 5 mg q.h.s. 11.Multivitamins 1 p.o. daily. 12.DuoNeb q.i.d. p.r.n. 13.Neurontin 300 mg p.o. b.i.d. 14.Symbicort 160/4.5 two puffs b.i.d. 15.Zyloprim 100 mg p.o. b.i.d. 16.Iron sulfate 320 mg p.o. b.i.d. 17.K-Dur 10 mg p.o. b.i.d. 18.Pravachol 40 mg q.h.s. 19.Omeprazole 20 mg p.o. daily. 20.Trulicity 0.7 mg subcu weekly. ALLERGY: ADHESIVE TAPES, CODEINE and NORCO AND MORPHINE. FAMILY HISTORY: History of COPD, EtOH. SOCIAL HISTORY: History of alcohol, previous history of smoking, occasional alcohol intake, previous smoking. REVIEW OF SYSTEMS: ENT: The patient is extremely hard of hearing, especially on the left ear. Otherwise cardiovascular system as mentioned earlier. RESPIRATORY: As mentioned earlier. GI: As mentioned earlier. : No dysuria or hematuria. NERVOUS SYSTEM: No numbness or weakness. ALLERGY/IMMUNOLOGY: No asthma or hayfever. MUSCULOSKELETAL as mentioned earlier. HEMATOLOGY/ONCOLOGY: No history of anemia. ENDOCRINE: Diabetes type 2. CONSTITUTIONAL: As mentioned earlier. DERMATOLOGY: Negative. RHEUMATOLOGY negative. PSYCHIATRY as mentioned earlier. PHYSICAL EXAM: Patient is alert, oriented x3. Pulse 78. Blood pressure 140/71, respiration 18, temperature normal, pulse ox 97% on room air. HEENT: Conjunctivae normal. Some puffiness of the face present. Otherwise, neck is no jugular venous distention. No thyroid enlargement. CARDIOVASCULAR system: S1, S2 muffled. Ejection systolic murmur. NO S3, no S4. RESPIRATORY: Breath sounds diminished in the bases. Bilateral scattered rhonchi. Expiratory wheezing and rhonchi heard. No crackles. ABDOMEN: Soft, obese, nontender. No mass palpable. No significant ascites noted. LEGS: Bilateral leg edema, left more than the right. The patient is also significant sensitivity due to peripheral neuropathy in the legs also. NERVOUS SYSTEM: Higher functions as mentioned earlier. Moves all 4 limbs. No focal motor deficits. Sensory impairment in the both lower limbs present. SKIN: No ulcer. No rash. No bleeding. JOINTS: No active deforming arthropathy. LYMPHATICS: No lymph nodes palpable in the neck, axillae or groin. LABS: WBC 6.2, hemoglobin 10.3, MCV 110, sodium 138, potassium 4.9 and glucose 280. ASSESSMENT: 1. Shortness of breath possibly with congestive heart failure acute exacerbation, with acute on chronic diastolic dysfunction, ejection fraction 50-55 percent. 2. Bronchospasm, possibly asthmatic bronchitis. 3. Chronic kidney disease stage 3. 4. History of atrial fibrillation paroxysmal. 5. History of congestive heart failure. 6. History of diabetes mellitus type 2. 7. History of peripheral neuropathy related to diabetes type 2. 8. Hyperlipidemia. 9. History of sciatica. 10.History of gout. 11.History of bladder cancer. 12.History of cardiac ablation. 13.History of degenerative joint disease. 14.History of hip and knee replacements. 15.Remote history of nicotine dependence. 16.Obesity with body mass of 31.6. 17.FULL CODE. RECOMMENDATIONS AND DISCUSSION: In this 84-year-old gentleman who presented with multiple complex medical issues, we will monitor the patient closely, continue the current medications, management and symptomatic treatment. We will continue to monitor. We will recommend IV diuretics 40 mg IV q.8h. I recommend monitor the creatinine closely. I would also recommend bronchodilators, empiric steroids also. The prognosis guarded because of multiple complex medical issues. Further recommendations to follow. A copy of this dictation being forwarded to Dr. Miranda who is the primary physician. See orders for details. Home medications will be reviewed and renewed. MMODL / IJN: [id number] /
[2019-10-14] MEDS: FUROSEMIDE 10 MG/ML 4 ML VIAL IV SCH ×4 (00:09→23:41)
[2019-10-14] MEDS: IPRATROPIUM-ALBUTEROL 3 ML NEB INHALATION PRN ×2 (04:49→23:30)
[2019-10-14 07:40] LABS: Glucose,Whole Blood 382 mg/dL (75-99)
[2019-10-14] MEDS: SYMBICORT 160-4.5 MCG INHALER INHALATION SCH ×2 (07:57→19:44)
[2019-10-14] MEDS: IPRATROPIUM-ALBUTEROL 3 ML NEB INHALATION SCH ×4 (07:57→19:44)
[2019-10-14] MEDS: METOPROLOL SUCCINATE (ER) 25 MG TAB.ER.24H PO SCH (09:09)
[2019-10-14] MEDS: APIXABAN 2.5 MG TABLET PO SCH ×2 (09:09→20:28)
[2019-10-14] MEDS: ACETAMINOPHEN TAB 500 MG TAB PO SCH ×3 (09:09→23:40)
[2019-10-14] MEDS: ALLOPURINOL 100 MG TAB PO SCH ×2 (09:10→20:26)
[2019-10-14] MEDS: INSULIN ASPART (NovoLOG) 100 UNIT/ML VIAL SQ SCH ×4 (09:10→20:26)
[2019-10-14] MEDS: MULTIVITAMINS, THERA 1 EACH TAB PO SCH (09:10)
[2019-10-14] MEDS: glipiZIDE 10 MG TAB PO SCH (09:10)
[2019-10-14] MEDS: CHOLECALCIFEROL 1,000 UNIT TAB PO SCH (09:10)
[2019-10-14] MEDS: GABAPENTIN 300 MG CAP PO SCH ×2 (09:10→20:26)
[2019-10-14] MEDS: DOCUSATE 100 MG CAP PO SCH (09:10)
[2019-10-14] MEDS: PANTOPRAZOLE 40 MG TABLET PO SCH (09:10)
[2019-10-14] MEDS: POTASSIUM CHLORIDE ER 10 MEQ TAB.ER.PRT PO SCH ×2 (09:10→20:26)
[2019-10-14] MEDS: FLUTICASONE 50MCG/SPRAY NASAL 16GM EA NOSTRIL SCH (09:11)
[2019-10-14] MEDS: FERROUS SULFATE 325 MG TAB PO SCH ×2 (09:11→20:26)
[2019-10-14 09:23] LABS: Calcium 8.3 mg/dL (8.4-10.2); Potassium 4.2 mmol/L (3.5-5.1)
[2019-10-14 09:30] LABS: Basophils % (A) 0 %; Eosinophils % (A) 0 %; HGB 10.8 gm/dL (13.0-17.5); Lymphocytes # (A) 0.5 k/uL (1.0-4.8); Lymphocytes % (A) 6 %; MCH 37.4 pg (25.0-35.0); MCHC 33.8 g/dL (31.0-37.0); MCV 110.8 fL (80.0-100.0); Macrocytosis Marked; Mean Platelet Volume 8.2; Monocytes # (A) 0.9 k/uL (0-1.0); Monocytes % (A) 11 %; Neutrophils # (A) 6.4 k/uL (1.3-7.7); Neutrophils % (A) 82 %; Platelet Count 178 k/uL (150-450); RBC 2.89 m/uL (4.30-5.90); RDW 14.3 % (11.5-15.5); WBC 7.8 k/uL (3.8-10.6)
[2019-10-14 10:18] LABS: Poikilocytosis (M) Present
--- NOTE | 2019-10-14 11:47 | US ---
EXAMINATION TYPE: US abdomen limited DATE OF EXAM: 10/14/2019 COMPARISON: NONE CLINICAL HISTORY: abdominal distention. Fluid check. TECHNIQUE/FINDINGS: Targeted ultrasound was performed of the abdomen to assess for ascites only utili zing grayscale imaging. All four quadrants scanned. No ascites visualized. IMPRESSION: No ascites seen.
[2019-10-14] MEDS ORDERED: INSULIN ASPART (NovoLOG) 100 UNIT/ML VIAL SQ ONE (11:57)
[2019-10-14 12:10] LABS: Glucose,Whole Blood 466 mg/dL (75-99)
[2019-10-14 13:56] LABS: Glucose,Whole Blood 349 mg/dL (75-99)
--- NOTE | 2019-10-14 14:21 | P.PN ---
Subjective Progress Note Date: 10/14/19 Principal diagnosis: This is an 84-year-old male who was recently admitted with increasing shortness of breath and also increasing bilateral lower extremity edema and is being close ly monitored. Patient is currently on IV steroids and continues to have elevated blood sugars. Will continue with sliding scale. Infectious disease was consulted for a right garza wound and is pending at this time. Discussed with the patient about keeping the legs elevated to help with the edema and also using Vamshi wraps. Review of Systems: Cardiovascular: No reports of chest pain or palpitations Respiratory: Reports shortness of breath with exertion, no reports of cough GI: No reports of nausea, vomiting, or diarrhea : No reports of dysuria or retention Musculoskeletal: Reports generalized pain Active Medications Acetaminophen (Tylenol Tab) 1,000 mg PO TID [facility] Last Admin: 10/14/19 09:09 Dose: 1,000 mg Documented by: Albuterol/Ipratropium (Duoneb 0.5 Mg-3 Mg/3 Ml Soln) 3 ml INHALATION RT-Q4H PRN PRN Reason: Shortness Of Breath Or Wheezing Last Admin: 10/14/19 04:49 Dose: 3 ml Documented by: Albuterol/Ipratropium (Duoneb 0.5 Mg-3 Mg/3 Ml Soln) 3 ml INHALATION RT-QID [facility] Last Admin: 10/14/19 12:09 Dose: 3 ml Documented by: Allopurinol (Zyloprim) 100 mg PO BID [facility] Last Admin: 10/14/19 09:10 Dose: 100 mg Documented by: Apixaban (Eliquis) 2.5 mg PO BID [facility] Last Admin: 10/14/19 09:09 Dose: 2.5 mg Documented by: Budesonide/Formoterol Fumarate (Symbicort 160-4.5 Mcg Inhaler) 2 puff INHALATION RT-BID [facility] Last Admin: 10/14/19 07:57 Dose: 2 puff Documented by: Cholecalciferol (Vitamin D3 (25 Mcg = 1000 Iu)) 2,000 unit PO DAILY [facility] Last Admin: 10/14/19 09:10 Dose: 2,000 unit Documented by: Cyanocobalamin (Vitamin B-12) 1,000 mcg SQ QMONTH [facility] Docusate Sodium (Colace) 100 mg PO DAILY [facility] Last Admin: 10/14/19 09:10 Dose: 100 mg Documented by: Ferrous Sulfate (Feosol) 325 mg PO BID [facility] Last Admin: 10/14/19 09:11 Dose: 325 mg Documented by: Fluticasone Propionate (Flonase Nasal [place]) 2 spray EA NOSTRIL DAILY [facility] Last Admin: 10/14/19 09:11 Dose: 2 spray Documented by: Furosemide (Lasix) 40 mg IV Q8HR [facility] Last Admin: 10/14/19 09:10 Dose: 40 mg Documented by: Gabapentin (Neurontin) 300 mg PO BID [facility] Last Admin: 10/14/19 09:10 Dose: 300 mg Documented by: Glipizide (Glucotrol) 10 mg PO QAM [facility] Last Admin: 10/14/19 09:10 Dose: 10 mg Documented by: Glipizide (Glucotrol) 5 mg PO HS [facility] Last Admin: 10/13/19 20:50 Dose: 5 mg Documented by: Insulin Aspart (Novolog) 0 unit SQ [facility]; Protocol Last Admin: 10/14/19 12:28 Dose: 12 unit Documented by: Methylprednisolone Sodium Succinate (Solu-Medrol) 60 mg IV Q6HR [facility] Last Admin: 10/14/19 11:45 Dose: 60 mg Documented by: Metoprolol Succinate (Toprol Xl) 25 mg PO DAILY [facility] Last Admin: 10/14/19 09:09 Dose: 25 mg Documented by: Multivitamins (Theragran) 1 each PO DAILY [facility] Last Admin: 10/14/19 09:10 Dose: 1 each Documented by: Non-Formulary Medication (Dulaglutide [Trulicity]) 0.75 mg SQ WEEKLY [facility] Pantoprazole Sodium (Protonix) 40 mg PO AC-BRKFST [facility] Last Admin: 10/14/19 09:10 Dose: 40 mg Documented by: Potassium Chloride (K-Dur 10) 10 meq PO BID [facility] Last Admin: 10/14/19 09:10 Dose: 10 meq Documented by: Pravastatin Sodium (Pravachol) 40 mg PO [facility] Last Admin: 10/13/19 20:40 Dose: 40 mg Documented by: Objective - Vital Signs Vital signs: Vital Signs Temp 97.4 F L 10/14/19 06:04 Pulse 88 10/14/19 08:09 Resp 20 10/14/19 08:00 BP 149/63 10/14/19 06:04 Pulse Ox 97 10/14/19 06:04 Intake & Output 10/13/19 10/14/19 10/14/19 18:59 06:59 18:59 Output Total 1500 Balance -1500 Weight 105.687 kg Output: Urine 1500 Other: Voiding Method Urinal Urinal - Exam Gen: This is a 84-year-old male sitting up in bed alert and oriented 3 well nourished HEENT: Head is atraumatic, normocephalic. Pupils equal, round. Sclerae is anicteric. Mild puffiness of the face present. NECK: Supple. No JVD. No lymphadenopathy. No thyromegaly. LUNGS: Diminished breath sounds at the bases with a few scattered rhonchi noted throughout. Mild expiratory wheezing noted on exam. No intercostal retractions. HEART: S1, S2 muffled with an ejection systolic murmur noted ABDOMEN: Soft. Obese. Mild abdominal distention that is tympanic. Bowel sounds are present. No masses. No tenderness. EXTREMITIES: Bilateral lower extremity edema with sensitivity due to peripheral neuropathy. Right garza bulbous ulcer noted with no surrounding redness or drainage. No calf tenderness. NEUROLOGICAL: Patient is awake, alert and oriented x3. Cranial nerves 2 through 12 are grossly intact. - Labs CBC & Chem 7: 10/14/19 08:27 10/14/19 08:27 Labs: Abnormal Lab Results - Last 24 Hours (Table) 10/13/19 10/13/19 10/13/19 Range/Units 14:32 14:32 20:28 RBC 2.86 L (4.30-5.90) m/uL Hgb 10.3 L (13.0-17.5) gm/dL Hct 31.4 L (39.0-53.0) % MCV 110.0 H (80.0-100.0) fL MCH 36.2 H (25.0-35.0) pg Lymphocytes # 0.4 L (1.0-4.8) k/uL Macrocytosis Marked A Sodium (137-145) mmol/L BUN 39 H (9-20) mg/dL Creatinine 2.45 H (0.66-1.25) mg/dL Glucose 280 H (74-99) mg/dL POC Glucose (mg/dL) 210 H (75-99) mg/dL Calcium (8.4-10.2) mg/dL Alkaline Phosphatase 137 H (38-126) U/L 10/14/19 10/14/19 10/14/19 Range/Units 07:27 08:27 08:27 RBC 2.89 L (4.30-5.90) m/uL Hgb 10.8 L (13.0-17.5) gm/dL Hct 32.0 L (39.0-53.0) % MCV 110.8 H (80.0-100.0) fL MCH 37.4 H (25.0-35.0) pg Lymphocytes # 0.5 L (1.0-4.8) k/uL Macrocytosis Marked A Sodium 136 L (137-145) mmol/L BUN 49 H (9-20) mg/dL Creatinine 2.14 H (0.66-1.25) mg/dL Glucose 332 H (74-99) mg/dL POC Glucose (mg/dL) 382 H (75-99) mg/dL Calcium 8.3 L (8.4-10.2) mg/dL Alkaline Phosphatase (38-126) U/L Assessment and Plan Assessment: Shortness of breath possibly with congestive heart failure acute exacerbation with acute on chronic diastolic dysfunction, ejection fraction 50-55% Bronchospasm, possibly asthmatic bronchitis Chronic kidney disease stage III History of atrial fibrillation paroxysmal History of congestive heart failure History of diabetes mellitus type 2 History of peripheral neuropathy 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 Infectious disease was consulted and is currently pending at this time for right garza wound. Patient will continue on IV diuretic therapy at this time along with IV steroids and will continue to monitor blood sugars and vital signs closely. Patient will continue with the sliding scale at this time. Abdominal ultrasound was ordered due to distention showing no ascites visualized. Due to multiple complex medical issues prognosis is guarded. Further recommendations to follow.
[2019-10-14 16:54] LABS: Glucose,Whole Blood 155 mg/dL (75-99)
[2019-10-14] MEDS ORDERED: traMADol 50 MG TAB PO STA (19:45)
[2019-10-14] MEDS: PRAVASTATIN SODIUM 40 MG TAB PO SCH (20:26)
[2019-10-14] MEDS: glipiZIDE 5 MG TAB PO SCH (20:26)
[2019-10-14 20:35] LABS: Glucose,Whole Blood 247 mg/dL (75-99)
[2019-10-15] MEDS: methylPREDNISolone SOD SUCCI 125 MG/2 ML VIAL IV SCH ×2 (05:25→11:53)
[2019-10-15 07:11] LABS: Glucose,Whole Blood 307 mg/dL (75-99)
[2019-10-15] MEDS: SYMBICORT 160-4.5 MCG INHALER INHALATION SCH ×2 (07:15→20:34)
[2019-10-15] MEDS: IPRATROPIUM-ALBUTEROL 3 ML NEB INHALATION SCH ×4 (07:15→20:34)
[2019-10-15] MEDS: DOCUSATE 100 MG CAP PO SCH (07:25)
[2019-10-15] MEDS: FUROSEMIDE 10 MG/ML 4 ML VIAL IV SCH ×3 (07:25→23:23)
[2019-10-15] MEDS: INSULIN ASPART (NovoLOG) 100 UNIT/ML VIAL SQ SCH ×4 (07:25→20:52)
[2019-10-15] MEDS: glipiZIDE 10 MG TAB PO SCH (07:26)
[2019-10-15] MEDS: METOPROLOL SUCCINATE (ER) 25 MG TAB.ER.24H PO SCH (07:26)
[2019-10-15] MEDS: ACETAMINOPHEN TAB 500 MG TAB PO SCH ×3 (07:26→20:50)
[2019-10-15] MEDS: ALLOPURINOL 100 MG TAB PO SCH ×2 (07:26→20:52)
[2019-10-15] MEDS: POTASSIUM CHLORIDE ER 10 MEQ TAB.ER.PRT PO SCH ×2 (07:26→20:52)
[2019-10-15] MEDS: MULTIVITAMINS, THERA 1 EACH TAB PO SCH (07:26)
[2019-10-15] MEDS: FERROUS SULFATE 325 MG TAB PO SCH ×2 (07:26→20:52)
[2019-10-15] MEDS: PANTOPRAZOLE 40 MG TABLET PO SCH (07:26)
[2019-10-15] MEDS: GABAPENTIN 300 MG CAP PO SCH ×2 (07:27→20:52)
[2019-10-15] MEDS: FLUTICASONE 50MCG/SPRAY NASAL 16GM EA NOSTRIL SCH (07:28)
[2019-10-15] MEDS: APIXABAN 2.5 MG TABLET PO SCH ×2 (07:34→20:52)
--- NOTE | 2019-10-15 07:36 | CONS ---
CONSULTATION DATE OF SERVICE: 10/14/2019 REASON FOR CONSULTATION: Right lower extremity wound. HISTORY OF PRESENT ILLNESS: The patient is an 84-year-old, male presenting to the ER at [facility] yesterday with chief complaints of difficulty breathing. The patient's symptom has been getting worse over the last 3 days with shortness of breath on minimal exertion and even at rest. The patient denies significant chest pain, cough or sputum production. No nausea, no vomiting, no abdominal pain or diarrhea. that prompted this infection disease consultation. The patient did have occasional dull aching pain to the area. No significant surrounding swelling or redness. normal. Patient was culture. Patient has been admitted to the hospital with CHF acute exacerbation. I was asked to see the patient regarding right leg wound. REVIEW OF SYSTEMS: Positive points have been mentioned in HPI. Rest of systems are negative. PAST MEDICAL HISTORY: diabetes mellitus, hyperlipidemia. PAST SURGICAL HISTORY: Cardiac ablation, back surgery, transureteral resection of bladder tumors, bilateral hip replacement, left knee replacement. SOCIAL HISTORY: No history of smoking though he drinks. No drug use. FAMILY HISTORY: Mother history of COPD. Father history of pancreatic cancer. ALLERGIES: Allergies to ADHESIVE TAPE, CODEINE and MORPHINE. MEDICATIONS: Medications include the patient is currently on Tylenol, DuoNeb, Zyloprim, Eliquis, Symbicort, vitamin D3, vitamin B12, Colace, iron sulfate, Lasix, Neurontin, Glipizide, NovoLog, Solu-Medrol, Toprol-XL, Protonix, K-Dur, and Pravachol. PHYSICAL EXAMINATION: Blood pressure is 142/60 with a pulse of 85, temperature 98. He is 92% on 2 L nasal cannula. General description is an elderly male lying in bed in no distress. No tachypnea or accessory muscle of respiration use. HEENT: Examination shows slight pallor. No scleral icterus. Oral mucous membranes dry. No pharyngeal erythema or thrush. NECK: Trachea central. No thyromegaly. LUNGS: Unlabored breathing, decreased breath sounds in the bases. No wheeze or crackle. HEART: S1, S2. Regular rate and rhythm. ABDOMEN: Soft, no tenderness. EXTREMITIES: 1+ edema of feet. Right leg did have superficial blister. The area was cleaned with . Wound base is currently clean with good granulation tissue. No slough tissue or surrounding redness and no drainage. NEUROLOGICALLY: Patient is awake, alert, oriented x3. Mood and affect normal. LABS: Hemoglobin is 10.8, white count 7.8. BUN 49, creatinine is 2.14. DIAGNOSTIC IMPRESSION AND PLAN: Patient with right lower extremity wound in this patient admitted to the hospital with possible congestive heart failure exacerbation and did have evidence of fluid overload. The wound is with base looks clean with no evidence of any purulence or secondary cellulitis. We recommend local wound care. PLAN: 1. Local wound care to the right leg wound with dry Aquacel Silver dressing and Vamshi wrap from just above the toes to below the knee. Unfortunately, the patient refusing the Vamshi wrap to keep the swelling down. 2. No need for systemic antibiotic therapy. 3. We will follow up on his clinical condition and further adjust medication if needed. Thank your for this consultation. Will follow this patient along with you. MMODL / IJN: [id number] /
[2019-10-15] MEDS: CHOLECALCIFEROL 1,000 UNIT TAB PO SCH (07:41)
[2019-10-15 09:37] LABS: Basophils % (A) 0 %; Eosinophils % (A) 0 %; HCT 31.7 % (39.0-53.0); HGB 10.3 gm/dL (13.0-17.5); Lymphocytes # (A) 0.3 k/uL (1.0-4.8); Lymphocytes % (A) 3 %; MCH 36.2 pg (25.0-35.0); MCHC 32.4 g/dL (31.0-37.0); MCV 111.9 fL (80.0-100.0); Macrocytosis Marked; Mean Platelet Volume 8.2; Monocytes # (A) 0.2 k/uL (0-1.0); Monocytes % (A) 2 %; Neutrophils % (A) 94 %; Platelet Count 158 k/uL (150-450); RBC 2.83 m/uL (4.30-5.90); RDW 14.3 % (11.5-15.5); WBC 8.6 k/uL (3.8-10.6)
[2019-10-15 10:09] LABS: Calcium 8.1 mg/dL (8.4-10.2)
[2019-10-15 11:36] LABS: Glucose,Whole Blood 364 mg/dL (75-99)
[2019-10-15 12:12] LABS: Anisocytosis (M) Present; Poikilocytosis (M) Present
[2019-10-15 12:14] LABS: Polychromasia Present
--- NOTE | 2019-10-15 15:49 | P.PN ---
Subjective Progress Note Date: 10/15/19 Principal diagnosis: This is an 84-year-old male who was recently admitted with increasing shortness of breath and also increasing bilateral lower extremity edema and is being close ly monitored. Patient is currently on IV steroids and continues to have elevated blood sugars. Will continue with sliding scale. Infectious disease was consulted for a right garza wound and is pending at this time. Discussed with the patient about keeping the legs elevated to help with the edema and also using Vamshi wraps. Review of Systems: Cardiovascular: No reports of chest pain or palpitations Respiratory: Reports shortness of breath with exertion, no reports of cough GI: No reports of nausea, vomiting, or diarrhea : No reports of dysuria or retention Musculoskeletal: Reports generalized pain 10/15/2019 Patient is sitting up at the side of the bed stating that he still feels quite short of breath and is having a lot of abdominal distention. Ultrasound of the abdomen showed no ascites. Patient continues to have elevated blood sugars and will continue with sliding scale at this time. Patient states that he also had a headache and feels that was due to the elevated blood sugars. Patient will continue with Tylenol for the headaches as needed. Patient states that he does not like narcotics. Creatinine today is slightly elevated and is currently 2.24. Patient will remain on IV diuretics at this time as he continues to have shortness of breath. Currently patient denies any chest pain or palpitations. Patient is afebrile. Patient denies any nausea or vomiting and is tolerating diet. Patient's lower extremity swelling has slightly improved and patient still continues to refuse to wear Vamshi wraps or compression hose. Will continue to monitor closely. Objective - Vital Signs Vital signs: Vital Signs Temp 97.3 F L 10/15/19 14:55 Pulse 90 10/15/19 14:55 Resp 16 10/15/19 14:55 BP 161/77 10/15/19 14:55 Pulse Ox 94 L 10/15/19 14:55 Intake & Output 10/14/19 10/15/19 10/15/19 18:59 06:59 18:59 Intake Total 2680 480 1080 Output Total 800 1151 Balance 2680 -320 -71 Intake: Oral 2680 480 1080 Output: Urine 800 1150 Stool 1 Other: Voiding Method Urinal Urinal Urinal # Voids 4 1 # Bowel Movements 1 - Exam Gen: This is a 84-year-old male sitting up in bed alert and oriented 3 well nourished HEENT: Head is atraumatic, normocephalic. Pupils equal, round. Sclerae is anicteric. Mild puffiness of the face present. Slight improvement NECK: Supple. No JVD. No lymphadenopathy. No thyromegaly. LUNGS: Diminished breath sounds at the bases with a few scattered rhonchi noted throughout. Mild expiratory wheezing noted on exam. No intercostal retractions. HEART: S1, S2 muffled with an ejection systolic murmur noted ABDOMEN: Soft. Obese. Mild abdominal distention that is tympanic. Bowel sounds are present. No masses. No tenderness. EXTREMITIES: Bilateral lower extremity edema with sensitivity due to peripheral neuropathy. Right garza bulbous ulcer noted with no surrounding redness or drainage. No calf tenderness. Bandage to the right garza is dry and intact with Aquacel noted NEUROLOGICAL: Patient is awake, alert and oriented x3. Cranial nerves 2 through 12 are grossly intact. - Labs CBC & Chem 7: 10/15/19 08:53 10/15/19 08:53 Labs: Abnormal Lab Results - Last 24 Hours (Table) 10/14/19 10/14/19 10/15/19 Range/Units 16:43 20:22 07:09 RBC (4.30-5.90) m/uL Hgb (13.0-17.5) gm/dL Hct (39.0-53.0) % MCV (80.0-100.0) fL MCH (25.0-35.0) pg Neutrophils # (1.3-7.7) k/uL Lymphocytes # (1.0-4.8) k/uL Macrocytosis Sodium (137-145) mmol/L Chloride (98-107) mmol/L BUN (9-20) mg/dL Creatinine (0.66-1.25) mg/dL Glucose (74-99) mg/dL POC Glucose (mg/dL) 155 H 247 H 307 H (75-99) mg/dL Calcium (8.4-10.2) mg/dL 10/15/19 10/15/19 10/15/19 Range/Units 08:53 08:53 11:34 RBC 2.83 L (4.30-5.90) m/uL Hgb 10.3 L (13.0-17.5) gm/dL Hct 31.7 L (39.0-53.0) % MCV 111.9 H (80.0-100.0) fL MCH 36.2 H (25.0-35.0) pg Neutrophils # 8.0 H (1.3-7.7) k/uL Lymphocytes # 0.3 L (1.0-4.8) k/uL Macrocytosis Marked A Sodium 135 L (137-145) mmol/L Chloride 94 L (98-107) mmol/L BUN 60 H (9-20) mg/dL Creatinine 2.24 H (0.66-1.25) mg/dL Glucose 359 H (74-99) mg/dL POC Glucose (mg/dL) 364 H (75-99) mg/dL Calcium 8.1 L (8.4-10.2) mg/dL Microbiology - Last 24 Hours (Table) 10/13/19 15:00 Blood Culture - Preliminary Blood No Growth after 24 hours Assessment and Plan Assessment: Shortness of breath possibly with congestive heart failure acute exacerbation with acute on chronic diastolic dysfunction, ejection fraction 50-55% Bronchospasm, possibly asthmatic bronchitis Chronic kidney disease stage III History of atrial fibrillation paroxysmal History of congestive heart failure History of diabetes mellitus type 2 History of peripheral neuropathy related to diabetes type 2 Hyperlipidemia History of sciatica History of gout History of bladder cancer History of cardiac ablation history of degenerative joint disease History of hip and knee replacements remote history of nicotine dependence Obesity with a body mass index of 31.6 Full code Recommendations and discussion: Recommend to continue current medications, management, and symptomatic treatment. Infectious disease following. Patient will continue on IV diuretic therapy at this time along with IV steroids and will continue to monitor blood sugars and vital signs closely. Patient will continue with the sliding scale at this time. Creatinine today is slightly worsened and is currently 2.24. Due to multiple complex medical issues prognosis is guarded. Further recommendations to follow.
[2019-10-15 16:52] LABS: Glucose,Whole Blood 219 mg/dL (75-99)
[2019-10-15 20:43] LABS: Glucose,Whole Blood 231 mg/dL (75-99)
[2019-10-15] MEDS: PRAVASTATIN SODIUM 40 MG TAB PO SCH (20:50)
[2019-10-15] MEDS: glipiZIDE 5 MG TAB PO SCH (20:52)
--- NOTE | 2019-10-15 22:28 | PN ---
PROGRESS NOTE DATE OF SERVICE: 10/15/2019 REASON FOR FOLLOWUP: Right leg wound. INTERVAL HISTORY: The patient is currently afebrile, has been breathing comfortably. Denies having any chest pain or any cough. The left leg swelling currently has slightly decreased. Wound currently with no drainage or pain. No nausea, no vomiting and no diarrhea. PHYSICAL EXAMINATION: Blood pressure is 161/77 with a pulse of 84, temperature 97.3. He is 94% on room air. General description is an elderly male lying in bed in no distress. RESPIRATORY SYSTEM: Unlabored breathing with decreased breath sounds at the base. No wheeze. HEART: S1, S2. Regular rate and rhythm. ABDOMEN: Soft. No tenderness. Right leg still has swelling. Wound on the anterior leg area with good granulation tissue. There is no surrounding redness or drainage. LABS: Hemoglobin is 10.3, white count 8.6, BUN of 16, creatinine 2.24. DIAGNOSTIC IMPRESSION AND PLAN: Patient with a left leg wound, currently with no evidence of any cellulitis. Recommend local wound care with dry Aquacel Silver dressing, Vamshi wrap, which the patient has refused. No need for systemic antibiotic therapy. Continue with supportive care. MMODL / IJN: [id number] /
[2019-10-15] MEDS: methylPREDNISolone SOD SUCCI 40 MG/ML 1 ML VIAL IV SCH (23:23)
[2019-10-16] MEDS: SYMBICORT 160-4.5 MCG INHALER INHALATION SCH (07:06)
[2019-10-16] MEDS: IPRATROPIUM-ALBUTEROL 3 ML NEB INHALATION SCH ×2 (07:06→11:07)
[2019-10-16 07:21] LABS: Glucose,Whole Blood 265 mg/dL (75-99)
[2019-10-16] MEDS: ACETAMINOPHEN TAB 500 MG TAB PO SCH (07:33)
[2019-10-16] MEDS: FUROSEMIDE 10 MG/ML 4 ML VIAL IV SCH (07:33)
[2019-10-16] MEDS: METOPROLOL SUCCINATE (ER) 25 MG TAB.ER.24H PO SCH (07:33)
[2019-10-16] MEDS: DOCUSATE 100 MG CAP PO SCH (07:33)
[2019-10-16] MEDS: APIXABAN 2.5 MG TABLET PO SCH (07:33)
[2019-10-16] MEDS: MULTIVITAMINS, THERA 1 EACH TAB PO SCH (07:33)
[2019-10-16] MEDS: FERROUS SULFATE 325 MG TAB PO SCH (07:34)
[2019-10-16] MEDS: INSULIN ASPART (NovoLOG) 100 UNIT/ML VIAL SQ SCH ×2 (07:34→12:24)
[2019-10-16] MEDS: methylPREDNISolone SOD SUCCI 40 MG/ML 1 ML VIAL IV SCH (07:34)
[2019-10-16] MEDS: ALLOPURINOL 100 MG TAB PO SCH (07:34)
[2019-10-16] MEDS: CHOLECALCIFEROL 1,000 UNIT TAB PO SCH (07:34)
[2019-10-16] MEDS: GABAPENTIN 300 MG CAP PO SCH (07:34)
[2019-10-16] MEDS: PANTOPRAZOLE 40 MG TABLET PO SCH (07:34)
[2019-10-16] MEDS: glipiZIDE 10 MG TAB PO SCH (07:34)
[2019-10-16] MEDS: POTASSIUM CHLORIDE ER 10 MEQ TAB.ER.PRT PO SCH (07:34)
[2019-10-16] MEDS: FLUTICASONE 50MCG/SPRAY NASAL 16GM EA NOSTRIL SCH (07:40)
[2019-10-16 09:55] LABS: Basophils % (A) 0 %; Eosinophils % (A) 0 %; HCT 36.1 % (39.0-53.0); HGB 11.7 gm/dL (13.0-17.5); Lymphocytes # (A) 0.3 k/uL (1.0-4.8); Lymphocytes % (A) 2 %; MCH 35.5 pg (25.0-35.0); MCHC 32.5 g/dL (31.0-37.0); MCV 109.1 fL (80.0-100.0); Macrocytosis Marked; Mean Platelet Volume 8.3; Monocytes # (A) 0.3 k/uL (0-1.0); Monocytes % (A) 2 %; Neutrophils # (A) 11.1 k/uL (1.3-7.7); Neutrophils % (A) 95 %; Platelet Count 210 k/uL (150-450); RBC 3.31 m/uL (4.30-5.90); RDW 14.2 % (11.5-15.5); WBC 11.7 k/uL (3.8-10.6)
[2019-10-16 10:09] LABS: Calcium 8.1 mg/dL (8.4-10.2); Potassium 3.7 mmol/L (3.5-5.1)
[2019-10-16 10:32] LABS: Anisocytosis (M) Present; Poikilocytosis (M) Present; Polychromasia Present
[2019-10-16 12:17] LABS: Glucose,Whole Blood 360 mg/dL (75-99)
[2019-10-16 13:55] VITALS: BP 144/72; PULSE 87; RESP 16; TEMP 97.5
--- NOTE | 2019-10-16 14:17 | P.DS ---
Providers Date of admission: 10/16/19 08:21 Expected date of discharge: 10/16/19 Attending physician: Nhi Rasheed Consults: 10/14/19 10:19 Consult Physician Routine Consulting Provider: Romaine Larkin Consult Reason/Comments: Leg wound Do you want consulting provider notified?: Yes [facility] care physician: [facility] Course: Final diagnosis Shortness of breath possibly with congestive heart failure acute exacerbation with acute on chronic diastolic dysfunction, ejection fraction 50-55% Bronchospasm, possibly asthmatic bronchitis Chronic kidney disease stage III History of atrial fibrillation paroxysmal History of congestive heart failure History of diabetes mellitus type 2 History of 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 Miranda upon discharge. Patient will continue with the prednisone taper upon discharge and also instructed to continue with his Lasix and instructed to take 40 mg in the morning and 20 mg in the evening. Total time taken is 35 minutes. History of present illness This is an 84-year-old male who was recently admitted with increasing shortness of breath and was being closely monitored. Patient was started on IV steroids and we'll transition to oral steroids in the form of a prednisone taper upon discharge. Patient was also being diuresed with IV Lasix and will continue with his Lasix at home. Patient was instructed to continue with Lasix 40 mg in the morning and 20 mg in the evening and have repeat labs to monitor creatinine in the next few days. Currently patient's condition is stable and is asking if he could go home today. Patient states that his shortness of breath has improved and the swelling of his lower extremities have improved as well. Patient was being seen by infectious disease for a possible infection of the right garza although there is no redness or swelling noted to the surrounding area. Patient instructed to keep the area clean and apply a bandage to the right garza wound. Patient also instructed to use Vamshi wraps or compression hose to assist with the swelling of the lower extremities and patient refused. Currently patient is denying any worsening shortness of breath, chest pain, or palpitations. Patient is afebrile. Patient denies any nausea or vomiting and has been tolerating diet. On exam vital signs are stable. Temp is 97.5F, pulse is 87, respirations are 16, blood pressure is 144/72, oxygen saturation is 94% on room air. Cardio S1, S2 are muffled. Respiratory system shows diminished breath sounds at the bases with some mild expiratory wheezing noted. Abdomen is mildly distended and nontender. Nervous system shows no focal deficits. Please refer to medication reconciliation sheet for a list of medications. Patient Condition at Discharge: Stable Plan - Discharge Summary Discharge Rx Participant: No New Discharge Prescriptions: New predniSONE 10 mg PO DIRECTED #30 tab Continue Allopurinol [Zyloprim] 100 mg PO BID Pravastatin Sodium [Pravachol] 40 mg PO HS Omeprazole 20 mg PO DAILY Potassium Chloride ER [K-Dur 10] 10 meq PO BID Dulaglutide [Trulicity] 0.75 mg SQ WEEKLY Budesonide/Formoterol Fumarate [Symbicort 160-4.5 Mcg Inhaler] 2 puff INHALATION RT-BID Ferrous Sulfate [Feosol] 325 mg PO BID Gabapentin [Neurontin] 300 mg PO BID Ipratropium-Albuterol Nebulize [Duoneb 0.5 mg-3 mg/3 ml Soln] 3 ml INHALATION RT-QID PRN PRN Reason: Shortness Of Breath Multivitamins, Thera [Multivitamin (formulary)] 1 tab PO DAILY Cyanocobalamin [Vitamin B-12 Injection] 1,000 mcg SQ QMONTH glipiZIDE XL [Glucotrol XL] 5 mg PO HS glipiZIDE XL [Glucotrol XL] 10 mg PO QAM Cholecalciferol [Vitamin D3 (25 Mcg = 1000 Iu)] 2,000 unit PO DAILY Docusate [Colace] 100 mg PO DAILY Metoprolol Succinate [Toprol XL] 25 mg PO DAILY Fluticasone Nasal [place] [Flonase Nasal [place]] 2 spr EA NOSTRIL DAILY Acetaminophen [Tylenol Arthritis] 1,300 mg PO BID Apixaban [Eliquis] 2.5 mg PO BID Albuterol Sulfate [Ventolin HFA] 2 puff INHALATION RT-Q6H PRN PRN Reason: Shortness Of Breath Changed Furosemide [Lasix] 40 mg PO BID 30 Days #90 tab Discharge Medication List Allopurinol [Zyloprim] 100 mg PO BID 01/26/16 [History] Pravastatin Sodium [Pravachol] 40 mg PO HS 01/26/16 [History] Omeprazole 20 mg PO DAILY 06/24/18 [History] Potassium Chloride ER [K-Dur 10] 10 meq PO BID 06/24/18 [History] Dulaglutide [Trulicity] 0.75 mg SQ WEEKLY 10/16/18 [History] Budesonide/Formoterol Fumarate [Symbicort 160-4.5 Mcg Inhaler] 2 puff INHALATION RT-BID 11/07/18 [History] Acetaminophen [Tylenol Arthritis] 1,300 mg PO BID 10/13/19 [History] Albuterol Sulfate [Ventolin HFA] 2 puff INHALATION RT-Q6H PRN 10/13/19 [History] Apixaban [Eliquis] 2.5 mg PO BID 10/13/19 [History] Cholecalciferol [Vitamin D3 (25 Mcg = 1000 Iu)] 2,000 unit PO DAILY 10/13/19 [History] Cyanocobalamin [Vitamin B-12 Injection] 1,000 mcg SQ QMONTH 10/13/19 [History] Docusate [Colace] 100 mg PO DAILY 10/13/19 [History] Ferrous Sulfate [Feosol] 325 mg PO BID 10/13/19 [History] Fluticasone Nasal [place] [Flonase Nasal [place]] 2 spr EA NOSTRIL DAILY 10/13/19 [History] Gabapentin [Neurontin] 300 mg PO BID 10/13/19 [History] Ipratropium-Albuterol Nebulize [Duoneb 0.5 mg-3 mg/3 ml Soln] 3 ml INHALATION RT-QID PRN 10/13/19 [History] Metoprolol Succinate [Toprol XL] 25 mg PO DAILY 10/13/19 [History] Multivitamins, Thera [Multivitamin (formulary)] 1 tab PO DAILY 10/13/19 [History] glipiZIDE XL [Glucotrol XL] 5 mg PO HS 10/13/19 [History] glipiZIDE XL [Glucotrol XL] 10 mg PO QAM 10/13/19 [History] Furosemide [Lasix] 40 mg PO BID 30 Days #90 tab 10/16/19 [Rx] predniSONE 10 mg PO DIRECTED #30 tab 10/16/19 [Rx] Follow up Appointment(s)/Referral(s): Jorge Miranda MD [Primary Care Provider] - 1-2 days (office said they will call pt) Ambulatory/Diagnostic Orders: Basic Metabolic Panel [LAB.AMB] Time Frame: 2 Days, Location: None Selected Complete Blood Count w/diff [LAB.AMB] Time Frame: 2 Days, Location: None Selected Patient Instructions/Handouts: Pulmonary Edema (DC) Activity/Diet/Wound Care/Special Instructions: Activity limited until follow up Continue with prednisone taper Continue taking lasix at 40mg in the morning and 20mg in the evening Diabetic diet, no salt, low fat. Fluid restrictions. Daily weight and record. Take to drs appointment. Repeat labs in 2-3 days Discharge Disposition: HOME SELF-CARE
--- NOTE | 2019-10-16 15:08 | PN ---
PROGRESS NOTE DATE OF SERVICE: 10/16/2019 REASON FOR FOLLOWUP: Right leg wound, likely ruptured blister. No cellulitis. INTERVAL HISTORY: The patient is seen on rounds this morning. Patient has been afebrile. The patient's breathing has improved. Denies having any chest pain or any cough. The leg swelling has improved. Wound is currently covered. No drainage on the dressing. PHYSICAL EXAMINATION: Blood pressure 144/72 with a pulse of 87, temperature 97.5, he is 94% on room air. General description is an elderly male lying in bed in no distress. Right lower extremity swelling has improved. Wound is currently covered with no drainage on the dressing. LABS: Hemoglobin is 11.4, white count is 11.7, creatinine is 2.36. DIAGNOSTIC IMPRESSION AND PLAN: Patient with right leg wound, likely from ruptured blister without evidence of any cellulitis. The patient will continue with local care with a dry Aquacel Silver dressing. Compression dressing was advised. However, he has refused. Continue supportive care. No need for any systemic antibiotic therapy. MMODL / IJN: [id number] /
[2019-10-18] MEDS ORDERED: CYANOCOBALAMIN 1,000 MCG/ML 1 ML VIAL SQ SCH (09:00)
[2019-10-20] MEDS ORDERED: NON FORMULARY DRUG (Dulaglutide [Trulicity] 0.75 MG) SQ SCH (09:00)
== END 2019-10-16 14:07 | disposition home or self-care (01) | DRG 291 ==
LOC: EC 13:43 → 6NMEDSUR 17:06 → OBSVTOIN 10-16 08:21
PROVIDERS: ADMIT Hospitalist; ATTEND Hospitalist
DX: I13.0 Hypertensive heart and chronic kidney disease with heart failure and stage 1 through stage 4 chronic kidney disease, or unspecified chronic kidney disease (principal); I50.33 Acute on chronic diastolic (congestive) heart failure; E11.65 Type 2 diabetes mellitus with hyperglycemia; E66.9 Obesity, unspecified; E78.5 Hyperlipidemia, unspecified; I07.1 Rheumatic tricuspid insufficiency; I27.20 Pulmonary hypertension, unspecified; I48.0 Paroxysmal atrial fibrillation; J45.909 Unspecified asthma, uncomplicated; Z96.649 Presence of unspecified artificial hip joint; Z96.652 Presence of left artificial knee joint; N18.3 Chronic kidney disease, stage 3 (moderate); M19.90 Unspecified osteoarthritis, unspecified site; M10.9 Gout, unspecified; M54.30 Sciatica, unspecified side; E11.42 Type 2 diabetes mellitus with diabetic polyneuropathy; E11.22 Type 2 diabetes mellitus with diabetic chronic kidney disease; Z79.01 Long term (current) use of anticoagulants; Z79.51 Long term (current) use of inhaled steroids; Z80.0 Family history of malignant neoplasm of digestive organs; Z68.31 Body mass index [BMI] 31.0-31.9, adult; Z82.5 Family history of asthma and other chronic lower respiratory diseases; Z85.51 Personal history of malignant neoplasm of bladder; Z87.891 Personal history of nicotine dependence; Z98.890 Other specified postprocedural states
CPT/HCPCS: 36415; 71046; 76705; 80048; 80053; 83605; 83735; 83880; 84484; 85025; 85610; 85730; 87040; 93005; 94640; 94760; 96374; 96375; 99285

== ENCOUNTER 2022-06-08 17:06 | Emergency (ER) | payer MEDICARE ==
[2022-06-08] MEDS ORDERED: DIPH,PERTUS(ACELL)TETVAC-LF 0.5 ML VIAL IM ONE (17:19)
[2022-06-08 17:23] VITALS: PULSE 81; RESP 18; TEMP 97.8
[2022-06-08 17:38] LABS: Glucose,Whole Blood 122 mg/dL (70-110)
[2022-06-08 17:48] LABS: Basophils # (A) 0.1 k/uL (0-0.2); Basophils % (A) 1 %; Eosinophils # (A) 0.1 k/uL (0-0.7); Eosinophils % (A) 1 %; HCT 34.1 % (39.0-53.0); Lymphocytes # (A) 0.8 k/uL (1.0-4.8); Lymphocytes % (A) 6 %; MCH 33.8 pg (25.0-35.0); MCHC 32.1 g/dL (31.0-37.0); MCV 105.3 fL (80.0-100.0); Macrocytosis Slight; Mean Platelet Volume 8.7; Monocytes # (A) 0.6 k/uL (0-1.0); Monocytes % (A) 5 %; Neutrophils # (A) 10.1 k/uL (1.3-7.7); Neutrophils % (A) 85 %; Platelet Count 215 k/uL (150-450); RBC 3.24 m/uL (4.30-5.90); RDW 13.6 % (11.5-15.5)
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
[2022-06-08 18:00] LABS: Partial Thromboplastin Time 30.5 sec (22.0-30.0); Prothrombin Time 10.9 sec (9.0-12.0)
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
[2022-06-08 18:21] LABS: ALT 12 U/L (4-49); AST 21 U/L (17-59); African American GFR (CKD) 30 (>60 ml/min/1.73 sqM); Albumin 4.6 g/dL (3.5-5.0); Alcohol <10 mg/dL; Alkaline Phosphatase 119 U/L (38-126); Anion Gap 18 mmol/L; Blood Urea Nitrogen 55 mg/dL (9-20); Calcium 8.7 mg/dL (8.4-10.2); Carbon Dioxide 24 mmol/L (22-30); Chloride 97 mmol/L (98-107); Glucose 122 mg/dL (74-99); Non-African American GFR(CKD) 26 (>60 ml/min/1.73 sqM); Potassium 4.4 mmol/L (3.5-5.1); Sodium 139 mmol/L (137-145); Total Bilirubin 1.2 mg/dL (0.2-1.3)
[2022-06-08] MEDS ORDERED: ACETAMINOPHEN TAB 325 MG TAB PO STA (18:44)
[2022-06-08] MEDS ORDERED: BACITRACIN OINT 1 EACH PACKET TOPICAL ONE (18:45)
[2022-06-08 19:52] VITALS: BP 144/89
== END 2022-06-08 19:19 | disposition home or self-care (01) ==
LOC: EC 17:06
DX: S01.81XA Laceration without foreign body of other part of head, initial encounter (principal); S50.11XA Contusion of right forearm, initial encounter; S60.211A Contusion of right wrist, initial encounter; S61.501A Unspecified open wound of right wrist, initial encounter; S51.801A Unspecified open wound of right forearm, initial encounter; J45.909 Unspecified asthma, uncomplicated; I48.91 Unspecified atrial fibrillation; E78.5 Hyperlipidemia, unspecified; I50.9 Heart failure, unspecified; E11.9 Type 2 diabetes mellitus without complications; M10.9 Gout, unspecified; Z91.040 Latex allergy status; Z88.5 Allergy status to narcotic agent; Z79.899 Other long term (current) drug therapy; Z23 Encounter for immunization; Z79.51 Long term (current) use of inhaled steroids; Z79.84 Long term (current) use of oral hypoglycemic drugs; Z79.01 Long term (current) use of anticoagulants
CPT/HCPCS: 36415; 86900; 86901; 80053; 84484; 85025; 85610; 85730; 86850; 71045; 72125; 70450; 90715; 99285; 90471; G0480; 80320

== ENCOUNTER 2022-08-18 10:58 | Emergency (ER) | payer MEDICARE ==
[2022-08-18] MEDS ORDERED: SODIUM CHLORIDE 0.9% 1,000 ML IV STA (15:01)
[2022-08-18] MEDS ORDERED: SODIUM CHLORIDE 0.9% 500 ML 500 ML IV STA ×2 (15:18→17:35)
[2022-08-18] MEDS ORDERED: ACETAMINOPHEN TAB 500 MG TAB PO STA (15:19)
[2022-08-18 15:43] LABS: Basophils % (A) 0 %; Eosinophils # (A) 0.2 k/uL (0-0.7); Eosinophils % (A) 1 %; HCT 37.5 % (39.0-53.0); HGB 12.9 gm/dL (13.0-17.5); Lymphocytes # (A) 0.4 k/uL (1.0-4.8); Lymphocytes % (A) 2 %; MCH 33.5 pg (25.0-35.0); MCHC 34.3 g/dL (31.0-37.0); MCV 97.7 fL (80.0-100.0); Mean Platelet Volume 9.3; Monocytes # (A) 1.3 k/uL (0-1.0); Monocytes % (A) 7 %; Neutrophils % (A) 89 %; Platelet Count 148 k/uL (150-450); RBC 3.84 m/uL (4.30-5.90); RDW 14.4 % (11.5-15.5); WBC 19.1 k/uL (3.8-10.6)
--- NOTE | 2022-08-18 15:51 | XR ---
EXAMINATION TYPE: XR chest 2V DATE OF EXAM: 08/18/2022 COMPARISON: 06/08/2022 HISTORY: Cough and history of heart failure TECHNIQUE: Frontal and lateral views of the chest are obtained. FINDINGS: There is no focal air space opacity, pleural effusion, or pneumothorax seen. The cardiac silhouette size is within normal limits. The osseous structures are intact. IMPRESSION: No acute cardiopulmonary process.
[2022-08-18 16:00] LABS: Total Bilirubin 8.9 mg/dL (0.2-1.3)
[2022-08-18] MEDS ORDERED: PIPERACILLIN-TAZOBACTAM 3.375 GM in SODIUM CHLORIDE 0.9% 100 ML IVPB ONE (16:00)
[2022-08-18 16:17] LABS: INR 1.1 (<1.2); Prothrombin Time 11.5 sec (9.0-12.0)
--- NOTE | 2022-08-18 16:32 | US ---
DATE OF EXAM: 08/18/2022 COMPARISON: NONE CLINICAL HISTORY: 86-year-old male with abdominal pain, fever, gallstone. Jaundice, ABD pain TECHNIQUE: Multiple sonographic images of the right upper quadrant are obtained. FINDINGS: EXAM MEASUREMENTS: Liver Length: 16.5 cm Gallbladder Wall: 0.4 cm CBD: 0.4 cm Right Kidney: 11.7 x 5.9 x 5.1 cm Pancreas: wnl, tail obscured by overlying bowel gas Liver: Somewhat echogenic periportal fat. Gallbladder: Distended with thickened wall, sludge and small gallstones Evidence for sonographic Leblanc's sign: Yes CBD: wnl Right Kidney: wnl IMPRESSION: 1. Somewhat echogenic periportal fat. Findings are nonspecific and may be technical, but may also be seen in the setting of generalized hepatic edema such as from hepatitis. Clinically correlate. 2. Hydropic gallbladder with wall thickening, extensive sludge and small stones. Sonographic Leblanc's sign is also reported positive. Unable to exclude acute cholecystitis. HIDA scan if clinically indic ated. 3. The bile duct is normal caliber at 4 mm.
[2022-08-18 17:02] LABS: Potassium 4.5 mmol/L (3.5-5.1); Total Protein 6.8 g/dL (6.3-8.2)
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
[2022-08-18 17:34] VITALS: BP 108/61; PULSE 92; RESP 18; TEMP 98.4
[2022-08-18] MEDS ORDERED: PIPERACILLIN-TAZOBACTAM 3.375 GM in SODIUM CHLORIDE 0.9% 100 ML IVPB SCH (22:00)
== END 2022-08-18 18:25 | disposition other institution (70) ==
LOC: EC 10:58
DX: K80.10 Calculus of gallbladder with chronic cholecystitis without obstruction (principal); K83.09 Other cholangitis; R50.9 Fever, unspecified; N18.9 Chronic kidney disease, unspecified; I48.91 Unspecified atrial fibrillation; J45.909 Unspecified asthma, uncomplicated; E11.9 Type 2 diabetes mellitus without complications; I50.9 Heart failure, unspecified; E78.5 Hyperlipidemia, unspecified; Z88.8 Allergy status to other drugs, medicaments and biological substances; Z88.5 Allergy status to narcotic agent; Z88.6 Allergy status to analgesic agent; Z79.899 Other long term (current) drug therapy
CPT/HCPCS: 36415; 93005; 86900; 86901; 80053; 82150; 83605; 83690; 85025; 85610; 85730; 86850; 71046; 76705; 99291; 96365; 96366; J2543